=== PATIENT | male | born 1940 | race Caucasian/White ===

== ENCOUNTER 2017-05-23 23:10 | Inpatient (IN) | payer OTHER, BC ==
--- NOTE | 2017-05-23 23:32 | PDOC ---
History of Present Illness - General Chief Complaint: Respiratory Stated Complaint: DIFFICULTY BREATHING Time Seen by Provider: 05/23/17 23:14 History Source: Patient Exam Limitations: No Limitations - History of Present Illness Initial Comments: 05/24/17 00:11 This is a 76-year-old male brought in by his daughter for evaluation of difficulty breathing. Daughter said the patient is had difficulty breathing and shortness of breath 1 day. Patient is a poor historian daughter said she did not take the patient's temperature but he was complaining of some chills and she noted that he was having some episodes of sweating as well. Patient has a history significant for hypertension , high cholesterol, diabetes, coronary artery disease, status post WI 3, congestive heart failure. PAST MEDICAL HISTORY: As per history of present illness PAST SURGICAL HISTORY: no significant history FAMILY HISTORY: no pertinant history SOCIAL HISTORY: Pt lives with family and is retired MEDICATIONS: reviewed ALLERGIES: As per nursing notes Review of Systems General: No fevers or chills, no weakness, no weight loss HEENT: No change in vision. No sore throat,. No ear pain, + productive cough and congestion CardioVascular: dyspnea and shortness of breath, no chest pain Respiratory:No cough, or wheezing. Gastrointestinal: no nausea, vomitting, diarrhea or constipation, No rectal bleeding Genitourinary: No dysuria, hematuria, or frequency Musculoskeletal: No joint or muscle pain or swelling Neurologic: No headache, vertigo, dizziness or loss of consciousness Psychiatric: nor depression Skin: No rashes or easy bruising Endocrine: no increased thirst or abnormal weight change Allergic: no skin or latex allergy All other systems reviewed and normal Exam: General: Well-nourished well-developed individual, in mild respiratory distress , tachypnea HEENT: Throat: Normal, tonsils normal, no erythema or exudate Neck: Supple, no meningeal signs, no lymphadenopathy Eyes::Pupils equal reactive and round, extraocular motion intact Chest: Nontender to palpation Cardiac: S1-S2 normal, regular rate and rhythm, no murmurs rubs or gallops Respiratory: There is decreased breath sounds bilateral throat: Bilateral bases and rales proximally chcf up Abdomen: Soft, nondistended, normal bowel sounds, nontender to palpation diffusely Extremities: Warm, dry, no cyanosis, clubbing, or edema Skin: No rashes Neuro: Alert and oriented x3, nonfocal exam, grossly intact, normal gait Psych: Normal mood and affect EKG shows atrial fibrillation at a rate of 104, there is a left axis deviation, patient has evidence of old inferior as well as anteroseptal MIs there is no acute ST-T wave changes 01:00 approx. pt had 3 brief runs of self limited vtack 7 beats, 4beats and 4 beats. Pt reassesed and was without complaint. Past History - Past Medical History Allergies/Adverse Reactions: Allergies Allergy/AdvReac Type Severity Reaction Status Date / Time No Known Drug Allergies Allergy Verified 05/23/17 23:15 venom-honey bee Allergy Verified 05/23/17 23:15 [bee venom (honey bee)] Home Medications: Ambulatory Orders Allopurinol [Zyloprim -] 100 mg PO DAILY 09/19/16 Aspirin [ASA -] 325 mg PO DAILY 09/19/16 Glimepiride [Glimepiride -] 1 mg PO BID 09/19/16 Simvastatin 40 mg PO DAILY 09/19/16 Carvedilol [Coreg -] 12.5 mg PO BID #60 tablet 09/21/16 Lisinopril [Prinivil] 20 mg PO DAILY #30 tablet 09/21/16 Famotidine [Pepcid Ac] 5 mg PO 1/2 TAB DAILY tablet 10/09/16 Cephalexin [Keflex] 500 mg PO TID 05/24/17 Digoxin [Lanoxin -] 0.25 mg PO DAILY 05/24/17 Furosemide [Lasix] 40 mg PO DAILY 05/24/17 Warfarin Na [Coumadin -] 5 mg PO HS 05/24/17 Cardiac Disorders: Yes (MIx2 AFIB) COPD: Yes CHF: Yes Diabetes: Yes HTN: Yes Hypercholesterolemia: Yes - Surgical History Abdominal Surgery: Yes (HERNIA) Cardiac Surgery: (STENTS X2) - Immunization History Immunization Up to Date: No - Suicide/Smoking/Psychosocial Hx Smoking History: Former smoker Have you smoked in the past 12 months: No If you are a former smoker, when did you quit?: 1999 Hx Alcohol Use: No Drug/Substance Use Hx: No Substance Use Type: None Hx Substance Use Treatment: No ED Treatment Course - LABORATORY CBC & Chemistry Diagram: 05/23/17 23:20 05/23/17 23:20 Medical Decision Making - Critical Care Time Total Critical Care Time (minutes): 40 Critical Care Statement: The care of this patient involved high complexity decision making to prevent further life threatening deterioration of the patient 's condition and/or to evaluate & treat vital organ system(s) failure or risk of failure. *DC/Admit/Observation/Transfer Diagnosis at time of Disposition: Troponin level elevated Pneumonia Qualifiers: Pneumonia type: due to unspecified organism Laterality: left Lung location: lower lobe of lung Qualified Code(s): J18.1 - Lobar pneumonia, unspecified organism; J18.1 - Lobar pneumonia, unspecified organism; J18.1 - Lobar pneumonia , unspecified organism CHF (congestive heart failure) Qualifiers: Congestive heart failure type: unspecified congestive heart failure type Congestive heart failure chronicity: acute on chronic Qualified Code(s): I50.9 - Heart failure, unspecified; I50.9 - Heart failure, unspecified; I50.9 - Heart failure, unspecified; I50.9 - Heart failure, unspecified - Discharge Dispostion Condition at time of disposition: Fair Admit: Yes
[2017-05-23] MEDS ORDERED: FUROSEMIDE 100 MG/10 ML INJECTABLE VIAL IVPB ONE (23:42)
[2017-05-24] MEDS ORDERED: FUROSEMIDE 100 MG/10 ML INJECTABLE VIAL ONE (00:26)
[2017-05-24] MEDS ORDERED: CEFTRIAXONE 1 GM in DEXTROSE 5%-WATER - 50 ML IVPB ONE (00:26)
[2017-05-24] MEDS ORDERED: AZITHROMYCIN IVPB 500 MG in DEXTROSE 5%-WATER - 250 ML IVPB ONE (00:27)
[2017-05-24] MEDS ORDERED: AZITHROMYCIN 500 MG VIAL IVPB ONE (00:36)
[2017-05-24] MEDS ORDERED: cefTRIAXone SODIUM 1 GM VIAL ONE (00:36)
[2017-05-24 00:45] LABS: VENOUS BLOOD GAS HCO3 26.1 meq/L (19-25); VENOUS PH 7.42 (7.32-7.42)
[2017-05-24 00:51] LABS: BASOPHIL 0.5 % (0-2.0); MCH 28.2 pg (25.7-33.7); MCHC 33.9 g/dl (32.0-35.9); MEAN CELL VOLUME 83.1 fl (80-96); MEAN PLT VOLUME 9.4 fl (7.5-11.1); NEUTROPHILS 84.2 % (42.8-82.8); PLATELET COUNT 157 K/MM3 (134-434); RDW 15.4 % (11.9-15.9); WHITE BLOOD COUNT 13.2 K/mm3 (4.0-10.0)
[2017-05-24 01:00] LABS: INR 1.32 (0.82-1.09); PROTHROMBIN TIME (PATIENT) 14.9 SEC (9.98-11.88)
[2017-05-24 01:03] LABS: ACTIVATED PTT 33.8 SECONDS (26.9-34.4)
[2017-05-24 01:14] LABS: ANION GAP 13 (8-16); CALCIUM 8.5 mg/dL (8.5-10.1); CO2 25 mmol/L (21-32); GLUCOSE,RANDOM 211 mg/dL (74-106)
[2017-05-24 01:19] LABS: ALK PHOS 109 U/L (45-117); BILIRUBIN,TOTAL 1.3 mg/dL (0.2-1.0); CPK 877 IU/L (39-308); CREATININE 1.2 mg/dL (0.7-1.3); SGPT/ALT 49 U/L (12-78); TOT PROT 7.7 g/dl (6.4-8.2); TROPONIN I 0.07 ng/ml (0.00-0.05)
[2017-05-24 01:23] LABS: SGOT/AST 53 U/L (15-37)
[2017-05-24 02:32] LABS: URINE APPEARANCE CLEAR; URINE BILIRUBIN NEGATIVE (NEGATIVE); URINE BLOOD 2+ (NEGATIVE); URINE COLOR YELLOW; URINE GLUCOSE (UA) 2+ (NEGATIVE); URINE KETONE NEGATIVE (NEGATIVE); URINE NITRITE NEGATIVE (NEGATIVE); URINE UROBILINOGEN NEGATIVE mg/dL (0.2-1.0)
[2017-05-24 02:37] LABS: URINE PROTEIN 2+ (NEGATIVE)
[2017-05-24 02:45] LABS: URINE HYALINE CAST 1 /lpf; URINE MUCUS RARE; URINE WBC 2 /hpf (3-5)
[2017-05-24 03:05] LABS: URINE RBC 5 /hpf (0-3)
[2017-05-24 03:06] LABS: URINE BACTERIA FEW /hpf (NONE SEEN)
[2017-05-24 03:09] LABS: PHOSPHOROUS 2.5 mg/dL (2.5-4.9)
--- NOTE | 2017-05-24 03:15 | HP ---
CHIEF COMPLAINT: SOB, Productive Cough, Chills PCP: Dr. Story HISTORY OF PRESENT ILLNESS: This is a 76 y/o man with a significant past medical history of HTN, HLD, CAD- [place] x3, Multiple stents, Afib (on Coumadin), CVA (no residual), DM. Who presents to the ED with his daughter for SOB, cough, chills x 1 day. 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 The patient reports normally walking several feet without LOVING, he reports having orthopnea last night. According to the ED record, the patient is a poor historian, the daughter said she did not take the patient's temperature but he was complaining of some chills and she noted that he was having some episodes of sweating as well. 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, cardioembolic CVA with (neurologic recovery) Bronchitis Diverticulosis, GERD, Hiatal Hernia Renal Insufficiency, BPH Gout Diabetes Mellitus PAST SURGICAL HISTORY: TURP Cardiac Stents Cataract Removal Hernia Repair Social History: Smoking: Cigars- Former 1999 Alcohol: Social Drugs: None 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, 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 Family History: Father: NC, age 85 Mother: CVA, Allergies No Known Drug Allergies Allergy (Verified 05/23/17 23:15) venom-honey bee [bee venom (honey bee)] Allergy (Verified 05/23/17 23:15) HOME MEDICATIONS: Home Medications Medication Instructions Recorded Allopurinol [Zyloprim -] 100 mg PO DAILY 09/19/16 Aspirin [ASA -] 325 mg PO DAILY 09/19/16 Glimepiride [Glimepiride -] 1 mg PO BID 09/19/16 Simvastatin 40 mg PO DAILY 09/19/16 Carvedilol [Coreg -] 12.5 mg PO BID #60 tablet 09/21/16 Lisinopril [Prinivil] 20 mg PO DAILY #30 tablet 09/21/16 Famotidine [Pepcid Ac] 5 mg PO 1/2 TAB DAILY tablet 10/09/16 Cephalexin [Keflex] 500 mg PO TID 05/24/17 Digoxin [Lanoxin -] 0.25 mg PO DAILY 05/24/17 Furosemide [Lasix] 40 mg PO DAILY 05/24/17 Warfarin Na [Coumadin -] 5 mg PO HS 05/24/17 REVIEW OF SYSTEMS CONSTITUTIONAL: fever, chills, diaphoresis Absent: generalized weakness, malaise, loss of appetite, weight change HEENT: Absent: rhinorrhea, nasal congestion, throat pain, throat swelling, difficulty swallowing, mouth swelling, ear pain, eye pain, visual changes CARDIOVASCULAR: Absent: chest pain, syncope, palpitations, irregular heart rate, lightheadedness , peripheral edema RESPIRATORY: cough, shortness of breath, dyspnea with exertion, orthopnea, wheezing Absent: stridor, hemoptysis GASTROINTESTINAL: Absent: abdominal pain, abdominal distension, nausea, vomiting, diarrhea, constipation, melena, hematochezia GENITOURINARY: Absent: dysuria, frequency, urgency, hesitancy, hematuria, flank pain, genital pain MUSCULOSKELETAL: Absent: myalgia, arthralgia, joint swelling, back pain, neck pain SKIN: Absent: rash, itching, pallor HEMATOLOGIC/IMMUNOLOGIC: Absent: easy bleeding, easy bruising, lymphadenopathy, frequent infections ENDOCRINE: Absent: unexplained weight gain, unexplained weight loss, heat intolerance, cold intolerance NEUROLOGIC: Absent: headache, focal weakness or paresthesias, dizziness, unsteady gait, seizure, mental status changes, bladder or bowel incontinence PSYCHIATRIC: Absent: anxiety, depression, suicidal or homicidal ideation, hallucinations. PHYSICAL EXAMINATION Vital Signs - 24 hr 05/23/17 05/23/17 05/24/17 23:12 23:26 00:30 Temperature 98.1 F Pulse Rate 100 H 100 H Pulse Rate [ 103 H Left Radial] Respiratory 32 H 32 H Rate Blood Pressure 124/103 Blood Pressure 156/76 [Right Arm] O2 Sat by Pulse 98 98 Oximetry (%) 05/24/17 05/24/17 01:00 02:00 Temperature Pulse Rate Pulse Rate [ 114 H 103 H Left Radial] Respiratory 32 H 28 H Rate Blood Pressure Blood Pressure 161/80 161/79 [Right Arm] O2 Sat by Pulse 96 Oximetry (%) GENERAL: Awake, alert, and oriented x2, in mild resp distress. HEAD: Normal with no signs of trauma. Bandage to mid- anterior scalp EYES: Pupils equal, round and reactive to light, extraocular movements intact, sclera anicteric, conjunctiva clear. No lid lag. +eccyhmotic bruising to B/L orbits EARS, NOSE, THROAT: Ears normal, nares patent, oropharynx clear without exudates. Dry mucous membranes. NECK: Normal range of motion, supple without lymphadenopathy, JVD, or masses. LUNGS: Scattered coarse rhonchi, +wheezes throughout. No accessory muscle use. HEART: Irregular rate and rhythm, normal S1 and S2 without murmur, rub or gallop. ABDOMEN: Soft, obese, nontender, not distended, normoactive bowel sounds, no guarding, no rebound, no masses. No hepatomegaly or splenomegaly. MUSCULOSKELETAL: Normal range of motion at all joints. No bony deformities or tenderness. No CVA tenderness. UPPER EXTREMITIES: 2+ pulses, warm, well-perfused. No cyanosis. No clubbing. No peripheral edema. LOWER EXTREMITIES: 2+ pulses, warm, well-perfused. No calf tenderness. No peripheral edema. NEUROLOGICAL: Cranial nerves II-XII intact. Normal speech. Gait not observed. PSYCHIATRIC: Cooperative. Good eye contact. Appropriate mood and affect. SKIN: Warm, dry, normal turgor, no rashes or lesions noted, normal capillary refill. Laboratory Results - last 24 hr 05/23/17 05/23/17 05/23/17 23:20 23:20 23:20 WBC 13.2 H D RBC 5.68 H Hgb 16.0 Hct 47.2 MCV 83.1 MCH 28.2 D MCHC 33.9 RDW 15.4 D Plt Count 157 MPV 9.4 D Neutrophils % 84.2 H D Lymphocytes % 6.3 L D Monocytes % 8.0 Eosinophils % 1.0 Basophils % 0.5 PT with INR INR PTT (Actin FS) VBG pH POC VBG pCO2 POC VBG pO2 Mixed VBG HCO3 Sodium Cancelled Potassium Cancelled Chloride Cancelled Carbon Dioxide Cancelled Anion Gap Cancelled BUN Cancelled Creatinine Cancelled Creat Clearance w eGFR Cancelled Random Glucose Cancelled Lactic Acid Calcium Cancelled Magnesium Total Bilirubin Cancelled AST Cancelled ALT Cancelled Alkaline Phosphatase Cancelled Creatine Kinase Creatine Kinase Index CK-MB (CK-2) Troponin I B-Natriuretic Peptide Cancelled Total Protein Cancelled Albumin Cancelled Urine Color Urine Appearance Urine pH Urine Protein Urine Glucose (UA) Urine Ketones Urine Blood Urine Nitrite Urine Bilirubin Urine Urobilinogen Urine RBC Urine WBC Ur Epithelial Cells Urine Bacteria Hyaline Casts Urine Mucus 05/23/17 05/23/17 05/23/17 23:20 23:20 23:30 WBC RBC Hgb Hct MCV MCH MCHC RDW Plt Count MPV Neutrophils % Lymphocytes % Monocytes % Eosinophils % Basophils % PT with INR 14.90 H INR 1.32 H PTT (Actin FS) 33.8 VBG pH POC VBG pCO2 POC VBG pO2 Mixed VBG HCO3 Sodium 137 Potassium 4.1 Chloride 99 Carbon Dioxide 25 Anion Gap 13 BUN 22 H Creatinine 1.2 Creat Clearance w eGFR 58.71 Random Glucose 211 H Lactic Acid 1.7 Calcium 8.5 Magnesium Total Bilirubin 1.3 H D AST 53 H D ALT 49 D Alkaline Phosphatase 109 Creatine Kinase 877 H Creatine Kinase Index 0.3 CK-MB (CK-2) 3.330 Troponin I 0.07 H D B-Natriuretic Peptide 5644.19 H Total Protein 7.7 Albumin 4.0 Urine Color Urine Appearance Urine pH Urine Protein Urine Glucose (UA) Urine Ketones Urine Blood Urine Nitrite Urine Bilirubin Urine Urobilinogen Urine RBC Urine WBC Ur Epithelial Cells Urine Bacteria Hyaline Casts Urine Mucus 05/24/17 05/24/17 05/24/17 00:40 01:20 01:59 WBC RBC Hgb Hct MCV MCH MCHC RDW Plt Count MPV Neutrophils % Lymphocytes % Monocytes % Eosinophils % Basophils % PT with INR INR PTT (Actin FS) VBG pH 7.42 POC VBG pCO2 40.7 POC VBG pO2 49.4 H Mixed VBG HCO3 26.1 H Sodium Potassium Chloride Carbon Dioxide Anion Gap BUN Creatinine Creat Clearance w eGFR Random Glucose Lactic Acid Calcium Magnesium 2.0 Total Bilirubin AST ALT Alkaline Phosphatase Creatine Kinase Creatine Kinase Index CK-MB (CK-2) Troponin I B-Natriuretic Peptide Total Protein Albumin Urine Color Yellow Urine Appearance Clear Urine pH 5.0 Urine Protein 2+ H Urine Glucose (UA) 2+ H Urine Ketones Negative Urine Blood 2+ H Urine Nitrite Negative Urine Bilirubin Negative Urine Urobilinogen Negative Urine RBC 5 Urine WBC 2 Ur Epithelial Cells Rare Urine Bacteria Few Hyaline Casts 1 Urine Mucus Rare ASSESSMENT/PLAN: This is a 76 y/o man with a PMHx of: HTN, HLD, DM, CAD, MIs x3, Multiple Cardiac Stents, Afib (on Coumadin), Cardiomyopathy, CHF, BPH, Renal Insufficiency. Admitted to ICU for Pneumonia, CHF Exacerbation, Elevated Troponin for further evaluation of their emergent condition. Plan: 1. Pulmonary: Community Acquired Pneumonia - CURB65 Score 2 - + Leukocytosis with L shift, LA wnl - Chest Xray- image LLL infiltrate, ?RML Infiltrate, vascular congestion, report pending - Blood Cultures-pending - Urine Culture, Legionella- pending - Sputum Culture-pending - Ceftriaxone, Azithromycin given in ED, will continue - Appreciate ID Consult - O2 - Duonebs - Monitor vitals - Repeat CBCD, BMP 2. CHF Exacerbation - Chest Xray reviewed - Lasix given in ED, will continue - Appreciate Cardiology Consult - Monitor renal function - Echo 08/2016- showed LVEF 42%, LVSF mod seemly reduced, LA mod dilated, RA, mod dilated, trace AR - Strict INOs - Daily weights - Low Na Diet - Continue home meds 3. Elevated Troponin I - Likely secondary to ischemic demand - Cardiac monitoring - Serial Enzymes - Cardiac Consult appreciated 4. Afib - [id number] - Continue Coumadin 5. Subtherapeutic INR - Continue Coumadin - Daily INRs - Consider increasing dose 6. CAD - Continue home meds 7. HTN - Continue home meds 8. HLD - Continue home med - Lipid Panel 9 Diabetes Mellitus - BGMs - ISS - Hold home meds for tighter glycemic control - HgbA1C in am 10. GERD - Continue home med 11. FEN - Fluid restriction 1L - Replete lytes prn - Low Na Diabetic Diet 12. DVT Prophylaxis - OOB - SCDs - Coumadin Code Status: Full Code Dispo: Requires Inpatient Care Problem List - Problem (1) Pneumonia Code(s): J18.9 - PNEUMONIA, UNSPECIFIED ORGANISM Qualifiers: Pneumonia type: due to unspecified organism Laterality: left Lung location: lower lobe of lung Qualified Code(s): J18.1 - Lobar pneumonia, unspecified organism; J18.1 - Lobar pneumonia, unspecified organism; J18.1 - Lobar pneumonia, unspecified organism (2) Systolic CHF Code(s): I50.20 - UNSPECIFIED SYSTOLIC (CONGESTIVE) HEART FAILURE (3) Troponin level elevated Code(s): R74.8 - ABNORMAL LEVELS OF OTHER SERUM ENZYMES (4) A-fib Code(s): I48.91 - UNSPECIFIED ATRIAL FIBRILLATION (5) CAD (coronary artery disease) Code(s): I25.10 - ATHSCL HEART DISEASE OF [place] CORONARY ARTERY W/O ANG PCTRS (6) Diabetes mellitus Code(s): E11.9 - TYPE 2 DIABETES MELLITUS WITHOUT COMPLICATIONS (7) Hyperglycemia Code(s): R73.9 - HYPERGLYCEMIA, UNSPECIFIED (8) HTN (hypertension) Code(s): I10 - ESSENTIAL (PRIMARY) HYPERTENSION (9) DVT prophylaxis Code(s): [id number] - Visit type - Emergency Visit Emergency Visit: Yes ED Registration Date: 05/23/17 Care time: The patient presented to the Emergency Department on the above date and was hospitalized for further evaluation of their emergent condition. - New Patient This patient is new to me today: Yes Date on this admission: 05/24/17 - Critical Care Critical Care patient: Yes Total Critical Care Time (in minutes): 35 Critical Care Statement: The care of this patient involved high complexity decision making to prevent further life threatening deterioration of the patient 's condition and/or to evaluate & treat vital organ system(s) failure or risk of failure.
[2017-05-24 03:21] LABS: DIGOXIN LEVEL 1.1924 ng/ml (0.8-2.0)
--- NOTE | 2017-05-24 03:44 | CONSULT ---
Consult Consult Specialty:: Pulmonary Critical Care Reason for Consultation:: SOB - History of Present Illness Chief Complaint: Cough, SOB History of Present Illness: Pt is a 76 yo with h/o HTN, HL, DM, CAD, WI x 3, CHF who presented to [facility] yesterday with c/o cough and chills. Admission labs notable for WBC 13 and BNP 5633 as well as mildly elevated troponin. Physical exam on arrival notable for rales bilaterally. CXR with possible LLL infiltrate +/- ? fluid overload. Pt was started on Azithro/Ceftriaxone and transferred to ICU for further management. On arrival to ICU pt with increased work of breathing, crackles bilaterally. Pt reports cough with productive greenish sputum, has received flu shot this year. 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, cardioembolic CVA with neurologic recovery) Cardio/Vascular: Yes: AFIB (chronic), CAD (prior anterior WI in 1995 and underwent PTCA of LAD, PCI of PDA in 2003 for unstable angina, anteroseptal WI in 2008 and underwent thrombolytic therapy and PCI of LAD with Vision bare- metal stent), CHF (chronic systolic), HTN, WI Pulmonary: Yes: Bronchitis Gastrointestinal: Yes: Diverticulosis, GERD, Hiatal Hernia Renal/: Yes: Renal Inusuff, BPH Rheumatology: Yes: Gout Endocrine: Yes: Diabetes Mellitus - Past Surgical History Past Surgical History: Yes: Cataract Removal, Hernia Repair (Inguinal hernia), TURP - Alcohol/Substance Use Hx Alcohol Use: No History of Substance Use: reports: None - Smoking History Smoking history: Former smoker Have you smoked in the past 12 months: No If you are a former smoker, when did you quit?: 1999 - Social History ADL: Independent Occupation: Retired- [employer] History of Recent Travel: No Home Medications - Allergies Allergies/Adverse Reactions: Allergies Allergy/AdvReac Type Severity Reaction Status Date / Time No Known Drug Allergies Allergy Verified 05/23/17 23:15 venom-honey bee Allergy Verified 05/23/17 23:15 [bee venom (honey bee)] - Home Medications Home Medications: Ambulatory Orders Allopurinol [Zyloprim -] 100 mg PO DAILY 09/19/16 Aspirin [ASA -] 325 mg PO DAILY 09/19/16 Glimepiride [Glimepiride -] 1 mg PO BID 09/19/16 Simvastatin 40 mg PO DAILY 09/19/16 Carvedilol [Coreg -] 12.5 mg PO BID #60 tablet 09/21/16 Lisinopril [Prinivil] 20 mg PO DAILY #30 tablet 09/21/16 Famotidine [Pepcid Ac] 5 mg PO 1/2 TAB DAILY tablet 10/09/16 Cephalexin [Keflex] 500 mg PO TID 05/24/17 Digoxin [Lanoxin -] 0.25 mg PO DAILY 05/24/17 Furosemide [Lasix] 40 mg PO DAILY 05/24/17 Warfarin Na [Coumadin -] 5 mg PO HS 05/24/17 Family Disease History - Family Disease History Family Disease History: CA: Father (CVA), Other: Father, Mother (CVA) Physical Exam Vital Signs: Vital Signs Temperature 98.1 F 05/23/17 23:12 Pulse Rate 103 H 05/24/17 02:00 Respiratory Rate 28 H 05/24/17 02:00 Blood Pressure 161/79 05/24/17 02:00 O2 Sat by Pulse Oximetry (%) 96 05/24/17 02:00 Eyes: Yes: Other (forehead wound s/p basal cell carcinoma removal, dressing c/d/ i. L orbital swelling/edema) Cardiovascular: Yes: Pulse Irregular, S1, S2 Respiratory: Yes: Cough, On Nasal O2, Rales Gastrointestinal: Yes: Normal Bowel Sounds, Soft Edema: No Integumentary: Yes: WNL Neurological: Yes: WNL, Alert, Oriented Labs: CBCD WBC 13.2 K/mm3 (4.0-10.0) H D 05/23/17 23:20 RBC 5.68 M/mm3 (4.00-5.60) H 05/23/17 23:20 Hgb 16.0 GM/dL (11.7-16.9) 05/23/17 23:20 Hct 47.2 % (35.4-49) 05/23/17 23:20 MCV 83.1 fl (80-96) 05/23/17 23:20 MCHC 33.9 g/dl (32.0-35.9) 05/23/17 23:20 RDW 15.4 % (11.9-15.9) D 05/23/17 23:20 Plt Count 157 K/MM3 (134-434) 05/23/17 23:20 MPV 9.4 fl (7.5-11.1) D 05/23/17 23:20 CMP Sodium 137 mmol/L (136-145) 05/23/17 23:20 Potassium 4.1 mmol/L (3.5-5.1) 05/23/17 23:20 Chloride 99 mmol/L (98-107) 05/23/17 23:20 Carbon Dioxide 25 mmol/L (21-32) 05/23/17 23:20 Anion Gap 13 (8-16) 05/23/17 23:20 BUN 22 mg/dL (7-18) H 05/23/17 23:20 Creatinine 1.2 mg/dL (0.7-1.3) 05/23/17 23:20 Creat Clearance w eGFR 58.71 (>60) 05/23/17 23:20 Calcium 8.5 mg/dL (8.5-10.1) 05/23/17 23:20 Total Bilirubin 1.3 mg/dL (0.2-1.0) H D 05/23/17 23:20 AST 53 U/L (15-37) H D 05/23/17 23:20 ALT 49 U/L (12-78) D 05/23/17 23:20 Alkaline Phosphatase 109 U/L (45-117) 05/23/17 23:20 Total Protein 7.7 g/dl (6.4-8.2) 05/23/17 23:20 Albumin 4.0 g/dl (3.4-5.0) 05/23/17 23:20 Troponin, BNP 05/23/17 05/23/17 23:20 23:20 Troponin I 0.07 H D B-Natriuretic Peptide Cancelled 5644.19 H Problem List - Problems (1) CHF (congestive heart failure) Code(s): I50.9 - HEART FAILURE, UNSPECIFIED Qualifiers: Congestive heart failure type: unspecified congestive heart failure type Congestive heart failure chronicity: acute on chronic Qualified Code(s): I50.9 - Heart failure, unspecified; I50.9 - Heart failure, unspecified; I50.9 - Heart failure, unspecified; I50.9 - Heart failure, unspecified (2) Pneumonia Code(s): J18.9 - PNEUMONIA, UNSPECIFIED ORGANISM Qualifiers: Pneumonia type: due to unspecified organism Laterality: left Lung location: lower lobe of lung Qualified Code(s): J18.1 - Lobar pneumonia, unspecified organism; J18.1 - Lobar pneumonia, unspecified organism; J18.1 - Lobar pneumonia, unspecified organism (3) Troponin level elevated Code(s): R74.8 - ABNORMAL LEVELS OF OTHER SERUM ENZYMES (4) [place] (acute kidney injury) Code(s): N17.9 - ACUTE KIDNEY FAILURE, UNSPECIFIED (5) CAD (coronary artery disease) Code(s): I25.10 - ATHSCL HEART DISEASE OF [place] CORONARY ARTERY W/O ANG PCTRS (6) Diabetes mellitus Code(s): E11.9 - TYPE 2 DIABETES MELLITUS WITHOUT COMPLICATIONS Assessment/Plan Respiratory distress likely in the setting of CAP vs viral PNA vs CHF exacerbation (less likely) Elevated BNP Troponin leak -continue ceftriaxone/azithro (community dweller) -send sputum sample -send urine antigens (legionella and strep pneumo) -send respiratory viral swab -nebs -supplemental O2 as needed -cont home dose lasix -cont home antiHTN/ASA/statin -consider TTE -trend BNP and troponin -FS, insulin prn as needed MICHELLE Carson Critical Care time: 35 min
[2017-05-24 04:02] VITALS: BMI 29.8
[2017-05-24] MEDS: ALBUTEROL SO4 2.5/IPRATROPIUM 0.5 INH SOL 3 ML VIAL.NEB. NEB SCH ×3 (05:53→18:00)
[2017-05-24] MEDS: INSULIN SLIDING SCALE (NOVOLOG) 1 VIAL SQ SCH ×4 (06:03→21:56)
[2017-05-24] MEDS ORDERED: FAMOTIDINE 5 MG PO SCH (06:15)
[2017-05-24 06:18] LABS: INR 1.35 (0.82-1.09); PROTHROMBIN TIME (PATIENT) 15.3 SEC (9.98-11.88)
[2017-05-24 06:23] LABS: BASOPHIL 0.5 % (0-2.0); MCH 28.3 pg (25.7-33.7); MCHC 34.2 g/dl (32.0-35.9); MEAN CELL VOLUME 82.8 fl (80-96); MEAN PLT VOLUME 8.6 fl (7.5-11.1); NEUTROPHILS 79.4 % (42.8-82.8); PLATELET COUNT 137 K/MM3 (134-434); RDW 15.3 % (11.9-15.9); WHITE BLOOD COUNT 10.6 K/mm3 (4.0-10.0)
[2017-05-24 06:31] LABS: ANION GAP 10 (8-16); CALCIUM 8.1 mg/dL (8.5-10.1); CO2 28 mmol/L (21-32); CREATININE 1.2 mg/dL (0.7-1.3); GLUCOSE,RANDOM 215 mg/dL (74-106)
[2017-05-24 06:33] LABS: CPK 764 IU/L (39-308); TROPONIN I 0.08 ng/ml (0.00-0.05)
[2017-05-24 06:39] LABS: CHOLESTEROL 103 mg/dL (50-200)
[2017-05-24] MEDS ORDERED: ACETAMINOPHEN 325 MG TABLET (FP) PO PRN (08:15)
--- NOTE | 2017-05-24 08:36 | EKG ---
Test Reason : Blood Pressure : / mmHG Vent. 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
[2017-05-24] MEDS ORDERED: PT OWN MED DRAWER 7, Y5N ONE (09:18)
[2017-05-24] MEDS: MUPIROCIN 2% TOPICAL OINTMENT FOR DECOLONIZATION NS SCH ×2 (09:19→21:51)
[2017-05-24] MEDS: ASPIRIN 325 MG TABLET PO SCH (09:19)
[2017-05-24] MEDS: DIGOXIN 0.25 MG TABLET (FP) PO SCH (09:20)
[2017-05-24] MEDS: CARVEDILOL 12.5 MG TABLET (FP) PO SCH ×2 (09:20→21:51)
[2017-05-24] MEDS: FUROSEMIDE 40 MG/4 ML INJECTABLE VIAL IVPUSH SCH (09:21)
[2017-05-24] MEDS: LISINOPRIL 20 MG TABLET (FP) PO SCH (09:21)
--- NOTE | 2017-05-24 10:58 | PN ---
Physical Exam: SUBJECTIVE: Patient seen and examined Patient is feeling better, positive for productive cough but no hemoptysis. OBJECTIVE: Vital Signs Temperature 99.6 F 05/24/17 06:00 Pulse Rate 104 H 05/24/17 09:20 Respiratory Rate 28 H 05/24/17 08:00 Blood Pressure 149/73 05/24/17 08:00 O2 Sat by Pulse Oximetry (%) 98 05/24/17 09:00 GENERAL: The patient is awake, alert, and fully oriented, in no acute distress. Tanned skin. HEAD: Normal with no signs of trauma. Forhead is covered with a gauze s/p basal cell ca EYES: PERRL, extraocular movements intact, sclera anicteric, conjunctiva clear. ENT: Ears normal, oropharynx clear without exudates, moist mucous membranes. NECK: Trachea midline, full range of motion, supple. LUNGS: Breath sounds equal, clear to auscultation bilaterally, no wheezes, no crackles, no accessory muscle use. HEART: Regular rate and rhythm, S1, S2 without murmur, rub or gallop. ABDOMEN: Soft, nontender, nondistended, normoactive bowel sounds, no guarding, no rebound, no hepatosplenomegaly, no masses. EXTREMITIES: 2+ pulses, warm, well-perfused, no edema. NEUROLOGICAL: Cranial nerves II through XII grossly intact. Normal speech, gait not observed. PSYCH: Normal mood, normal affect. SKIN: Warm, dry, normal turgor, no rashes or lesions noted CBCD WBC 10.6 K/mm3 (4.0-10.0) H 05/24/17 05:05 RBC 5.49 M/mm3 (4.00-5.60) 05/24/17 05:05 Hgb 15.6 GM/dL (11.7-16.9) 05/24/17 05:05 Hct 45.5 % (35.4-49) 05/24/17 05:05 MCV 82.8 fl (80-96) 05/24/17 05:05 MCHC 34.2 g/dl (32.0-35.9) 05/24/17 05:05 RDW 15.3 % (11.9-15.9) 05/24/17 05:05 Plt Count 137 K/MM3 (134-434) 05/24/17 05:05 MPV 8.6 fl (7.5-11.1) 05/24/17 05:05 CMP Sodium 137 mmol/L (136-145) 05/24/17 05:05 Potassium 3.2 mmol/L (3.5-5.1) L D 05/24/17 05:05 Chloride 99 mmol/L (98-107) 05/24/17 05:05 Carbon Dioxide 28 mmol/L (21-32) 05/24/17 05:05 Anion Gap 10 (8-16) 05/24/17 05:05 BUN 22 mg/dL (7-18) H 05/24/17 05:05 Creatinine 1.2 mg/dL (0.7-1.3) 05/24/17 05:05 Creat Clearance w eGFR 58.71 (>60) 05/23/17 23:20 Random Glucose 215 mg/dL (74-106) H 05/24/17 05:05 Calcium 8.1 mg/dL (8.5-10.1) L 05/24/17 05:05 Total Bilirubin 1.3 mg/dL (0.2-1.0) H D 05/23/17 23:20 AST 53 U/L (15-37) H D 05/23/17 23:20 ALT 49 U/L (12-78) D 05/23/17 23:20 Alkaline Phosphatase 109 U/L (45-117) 05/23/17 23:20 Total Protein 7.7 g/dl (6.4-8.2) 05/23/17 23:20 Albumin 4.0 g/dl (3.4-5.0) 05/23/17 23:20 CARDIAC ENZYMES Creatine Kinase 764 IU/L (39-308) H 05/24/17 05:05 Troponin I 0.08 ng/ml (0.00-0.05) H 05/24/17 05:05 Active Medications Generic Name Dose Route Start Last Admin Trade Name Freq PRN Reason Stop Dose Admin Acetaminophen 650 mg 05/24/17 08:15 Tylenol - PO Q6H PRN FEVER OR PAIN Albuterol/Ipratropium 1 amp 05/24/17 06:00 05/24/17 05:53 Duoneb - NEB 1 amp QIDR [facility] Administration Aspirin 325 mg 05/24/17 10:00 05/24/17 09:19 Asa - PO 325 mg DAILY [facility] Administration Atorvastatin Calcium 20 mg 05/24/17 22:00 Lipitor - PO HS [facility] Carvedilol 12.5 mg 05/24/17 10:00 05/24/17 09:20 Coreg - PO 12.5 mg BID [facility] Administration Chlorhexidine Gluconate 1 applic 05/24/17 22:00 Hibiclens For Decolonization - TP HS [facility] Digoxin 0.25 mg 05/24/17 10:00 05/24/17 09:20 Lanoxin - PO 0.25 mg DAILY [facility] Administration Furosemide 40 mg 05/24/17 10:00 05/24/17 09:21 Lasix Injection - IVPUSH 40 mg DAILY [facility] Administration Azithromycin 250 mls @ 250 mls/hr 05/25/17 01:00 Zithromax 500mg Ivpb (Pre-Docked) IVPB DAILY [facility] CEFTRIAXONE 1 G/50 ML PREMIX 50 mls @ 200 mls/hr 05/25/17 01:00 Ceftriaxone 1 Gm-D5w Bag IVPB DAILY [facility] Insulin Aspart 1 vial 05/24/17 07:00 05/24/17 06:03 Novolog Vial Sliding Scale - SQ 4 units ACHS [facility] Administration Protocol Lisinopril 20 mg 05/24/17 10:00 05/24/17 09:21 Prinivil PO 20 mg DAILY [facility] Administration Mupirocin 1 applic 05/24/17 10:00 05/24/17 09:19 Bactroban Ointment (For Decolonization) - NS 05/29/17 09:59 1 applic BID [facility] Administration Non-Formulary Medication 5 mg 05/24/17 06:15 Famotidine [Pepcid Ac] PO 1/2 TAB DAILY [facility] Warfarin Sodium 5 mg 05/24/17 18:00 Coumadin - PO DAILY@1800 [facility] Home Medications Medication Instructions Recorded Allopurinol [Zyloprim -] 100 mg PO DAILY 09/19/16 Aspirin [ASA -] 325 mg PO DAILY 09/19/16 Glimepiride [Glimepiride -] 1 mg PO BID 09/19/16 Simvastatin 40 mg PO DAILY 09/19/16 Carvedilol [Coreg -] 12.5 mg PO BID #60 tablet 09/21/16 Lisinopril [Prinivil] 20 mg PO DAILY #30 tablet 09/21/16 Famotidine [Pepcid Ac] 5 mg PO 1/2 TAB DAILY tablet 10/09/16 Cephalexin [Keflex] 500 mg PO TID 05/24/17 Digoxin [Lanoxin -] 0.25 mg PO DAILY 05/24/17 Furosemide [Lasix] 40 mg PO DAILY 05/24/17 Warfarin Na [Coumadin -] 5 mg PO HS 05/24/17 Microbiology 05/23/17 23:20 Blood - Peripheral Venous Blood Culture - Preliminary NO GROWTH OBTAINED AFTER 48 HOURS, INCUBATION TO CONTINUE FOR 3 DAYS. 05/23/17 23:40 Blood - Peripheral Venous Blood Culture - Preliminary NO GROWTH OBTAINED AFTER 48 HOURS, INCUBATION TO CONTINUE FOR 3 DAYS. 05/24/17 03:40 Sputum - Expectorated Gram Stain - Final 05/24/17 03:40 Sputum - Expectorated Sputum Culture - Preliminary NORMAL RESPIRATORY MILADYS 05/24/17 11:30 Urine For Antigen Detection Legionella Antigen - Final 05/24/17 11:30 Urine For Antigen Detection Streptococcus pneumoniae Antigen (M - Final Chest Xray- image LLL infiltrate, ?RML Infiltrate, vascular congestion, report pending Echo 08/2016- showed LVEF 42%, LVSF mod seemly reduced, LA mod dilated, RA, mod dilated, trace AR ASSESSMENT/PLAN: This is a 76 y/o man with a PMHx of: HTN, HLD, DM, CAD, MIs x3, Multiple Cardiac Stents, Afib (on Coumadin), Cardiomyopathy, CHF, BPH, Renal Insufficiency. Admitted to ICU for Pneumonia, CHF Exacerbation, Elevated Troponin for further evaluation of their emergent condition. # Acute community Acquired Pneumonia; On Iv Ceftriaone and zithromax continue, ID on the case. # Acute diastolic CHF Exacerbation ; Is and Os, daily weight, low sodium diet, On Lasix, digoxin, Lisinopril, coreg continue. #. Elevated Troponin I; most likely for ischemic demand # Afib with [id number], on Coumadin continue , daily INRs # Recent Bx for Basal cell ca , will apply bactroban 2x per day # Hx of CAD Continue home meds, llipitor coreg, # Hx of HTN Continue home meds # Hx of HLD Continue home med, Lipid Panel #Diabetes Mellitus; BGMs with SSI coverage # GERD Continue home med # DVT Prophylaxis OOB, SCDs, Coumadin Code Status: Full Code Visit type - Emergency Visit Emergency Visit: Yes ED Registration Date: 05/24/17 Care time: The patient presented to the Emergency Department on the above date and was hospitalized for further evaluation of their emergent condition. - New Patient This patient is new to me today: Yes Date on this admission: 05/24/17 - Critical Care Critical Care patient: Yes Total Critical Care Time (in minutes): 34 Critical Care Statement: The care of this patient involved high complexity decision making to prevent further life threatening deterioration of the patient 's condition and/or to evaluate & treat vital organ system(s) failure or risk of failure.
[2017-05-24 11:38] LABS: URINE LEUK ESTERASE Negative (NEGATIVE)
--- NOTE | 2017-05-24 12:22 | PN ---
Progress Note (short form) - Note Progress Note: ID consult dictated clinically c/w pneumonia felt feverish with chills, cough with yellow sputum and SOB last admission 2016 cxray cannot r/o bibasilarinfiltrates agree with treatment for CAP rocephin/zithromax chf exacerbation Problem List - Problems (1) Pneumonia Code(s): J18.9 - PNEUMONIA, UNSPECIFIED ORGANISM Qualifiers: Pneumonia type: due to unspecified organism Laterality: left Lung location: lower lobe of lung Qualified Code(s): J18.1 - Lobar pneumonia, unspecified organism; J18.1 - Lobar pneumonia, unspecified organism; J18.1 - Lobar pneumonia, unspecified organism (2) CHF (congestive heart failure) Code(s): I50.9 - HEART FAILURE, UNSPECIFIED Qualifiers: Congestive heart failure type: unspecified congestive heart failure type Congestive heart failure chronicity: acute on chronic Qualified Code(s): I50.9 - Heart failure, unspecified; I50.9 - Heart failure, unspecified; I50.9 - Heart failure, unspecified; I50.9 - Heart failure, unspecified
--- NOTE | 2017-05-24 13:16 | CONS ---
DATE OF CONSULTATION: DATE OF DICTATION: 05/24/2017 REQUESTING PHYSICIAN: Hospitalist service. HISTORY: This is a 76-year-old man with a past medical history of hypertension, coronary artery disease, atrial fibrillation, who on had a biopsy of a lesion on his forehead. He reports after having had the biopsy he developed cough and shortness of breath. He also felt feverish with chills at home. Cough was productive of green sputum. There was no hemoptysis. His daughter brought him to the emergency room with these complaints. There were no complaints of chest pain, nausea, vomiting, diarrhea, or dysuria. A month back he had a biopsy of his nose, after which he developed some swelling of both his eyes, which he reports has improved. He was given a medication after the biopsy. He is unclear as to what he was given. In the ER he was noted to have a white count of 13.2. PAST MEDICAL HISTORY: Notable for prior TN. He has a history of stents, atrial fibrillation, hypertension, hyperlipidemia, CVA, bronchitis, diverticulosis, GERD, hiatal hernia, renal insufficiency, BPH, gout, and diabetes. PAST SURGICAL HISTORY: Notable for TURP, cataract removal, and hernia repair. FAMILY HISTORY: Father had TN and mother history of CVA. Both his parents are . SOCIAL HISTORY: He lives with his daughter. 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 No history of any substance use. ALLERGIES: He has no known drug allergies. He is allergic to BEE VENOM. MEDICATIONS: His medications at home include allopurinol, aspirin, glimepiride, simvastatin, Coreg, Prinivil, Pepcid, furosemide, Coumadin, and Lanoxin. PHYSICAL EXAMINATION: General: He is awake and alert. Vital Signs: Temperature is 98.7. T-max is 99.6. Pulse of 112, blood pressure 124/70. Respiratory rate is 23. He is saturating 98%. HEENT: He is normocephalic. His eyes are anicteric. He has no thrush. He has a bandage on his forehead. Underneath he has no drainage. Sutures are intact. He has some mild discoloration around both eyes, left greater than right, which he reports has improved. Neck: Supple. Lungs: Lungs have bilateral rhonchi. Heart: Regular rate and rhythm. Abdomen: Soft, nontender. Extremities: Without edema. LABORATORY: White count on admission was 13.2, this morning is 10.6, hemoglobin 15.6. BUN and creatinine are 22 and 1.2. Hemoglobin A1c is 7. CPK is 764. Urinalysis has 2 white cells and cultures are pending. Chest x-ray shows some cardiomegaly. I cannot rule out bibasilar infiltrates. SUMMARY: This is a 76-year-old man with clinical exam and history consistent with pneumonia as well as possible congestive heart failure exacerbation. Last admission was in August of 2016. Would agree with continuing Rocephin and Zithromax, follow up Legionella urinary antigen and cultures. He is to be evaluated by Cardiology as well. CHAYA MELO M.D. [id number]
[2017-05-24 14:12] LABS: TROPONIN I 0.06 ng/ml (0.00-0.05)
[2017-05-24] MEDS: WARFARIN NA 5 MG TABLET (UD) PO SCH (18:01)
[2017-05-24] MEDS: CHLORHEXIDINE GLUCONATE 4% CLEANSER FOR DECOLONIZATION TP SCH (21:51)
[2017-05-24] MEDS: ATORVASTATIN CA 20 MG TABLET (FP) PO SCH (21:51)
[2017-05-25] MEDS ORDERED: PT OWN MED DRAWER 7, Y5N ONE ×2 (00:21→09:07)
[2017-05-25] MEDS: CEFTRIAXONE 1 G/50 ML PREMIX 50 ML IVPB SCH ×2 (00:58→09:03)
[2017-05-25] MEDS: AZITHROMYCIN IVPB 250 ML IVPB SCH ×2 (00:59→11:40)
[2017-05-25] MEDS: INSULIN SLIDING SCALE (NOVOLOG) 1 VIAL SQ SCH ×4 (06:22→21:32)
[2017-05-25] MEDS: ALBUTEROL SO4 2.5/IPRATROPIUM 0.5 INH SOL 3 ML VIAL.NEB. NEB SCH ×4 (06:25→18:00)
[2017-05-25 06:39] LABS: INR 1.3 (0.82-1.09); PROTHROMBIN TIME (PATIENT) 14.7 SEC (9.98-11.88)
[2017-05-25] MEDS: DIGOXIN 0.25 MG TABLET (FP) PO SCH (09:01)
[2017-05-25] MEDS: LISINOPRIL 20 MG TABLET (FP) PO SCH (09:02)
[2017-05-25] MEDS: FUROSEMIDE 40 MG/4 ML INJECTABLE VIAL IVPUSH SCH (09:02)
[2017-05-25] MEDS: ASPIRIN 325 MG TABLET PO SCH (09:02)
[2017-05-25] MEDS: CARVEDILOL 12.5 MG TABLET (FP) PO SCH ×2 (09:02→21:28)
[2017-05-25] MEDS: MUPIROCIN 2% TOPICAL OINTMENT FOR DECOLONIZATION NS SCH ×2 (09:05→21:28)
--- NOTE | 2017-05-25 09:15 | PN ---
Progress Note (short form) - Note Progress Note: Patient seen and examined in the ICU. Awake and alert. Still with some cough but better. No CP. No acute events overnight. Intake & Output 05/22/17 05/23/17 05/24/17 05/25/17 23:59 23:59 23:59 23:59 Intake Total 2180 470 Output Total 2150 500 Balance 30 -30 Weight 200 lb 208 lb 1.6 oz 207 lb 1.6 oz Last Vital Signs Temp Pulse Resp BP Pulse Ox 97.4 F L 105 H 25 H 115/60 95 05/25/17 06:00 05/25/17 09:01 05/25/17 07:58 05/25/17 07:58 05/25/17 08:01 Active Medications Acetaminophen (Tylenol -) 650 mg PO Q6H PRN PRN Reason: FEVER OR PAIN Albuterol/Ipratropium (Duoneb -) 1 amp NEB QIDR [facility] Last Admin: 05/25/17 06:25 Dose: 1 amp Aspirin (Asa -) 325 mg PO DAILY [facility] Last Admin: 05/25/17 09:02 Dose: 325 mg Atorvastatin Calcium (Lipitor -) 20 mg PO HS [facility] Last Admin: 05/24/17 21:51 Dose: 20 mg Carvedilol (Coreg -) 12.5 mg PO BID [facility] Last Admin: 05/25/17 09:02 Dose: 12.5 mg Chlorhexidine Gluconate (Hibiclens For Decolonization -) 1 applic TP HS [facility] Last Admin: 05/24/17 21:51 Dose: 1 applic Digoxin (Lanoxin -) 0.25 mg PO DAILY [facility] Last Admin: 05/25/17 09:01 Dose: 0.25 mg Furosemide (Lasix Injection -) 40 mg IVPUSH DAILY [facility] Last Admin: 05/25/17 09:02 Dose: 40 mg Azithromycin (Zithromax 500mg Ivpb (Pre-Docked)) 250 mls @ 250 mls/hr IVPB DAILY [facility] Last Admin: 05/25/17 00:59 Dose: 250 mls/hr CEFTRIAXONE 1 G/50 ML PREMIX (Ceftriaxone 1 Gm-D5w Bag) 50 mls @ 200 mls/hr IVPB DAILY [facility] Last Admin: 05/25/17 09:03 Dose: 200 mls/hr Insulin Aspart (Novolog Vial Sliding Scale -) 1 vial SQ ACHS [facility] PRN Reason: Protocol Last Admin: 05/25/17 06:22 Dose: 2 units Lisinopril (Prinivil) 20 mg PO DAILY [facility] Last Admin: 05/25/17 09:02 Dose: 20 mg Mupirocin (Bactroban Ointment (For Decolonization) -) 1 applic NS BID [facility] Stop: 05/29/17 09:59 Last Admin: 05/25/17 09:05 Dose: 1 applic Non-Formulary Medication (Famotidine [Pepcid Ac]) 5 mg PO 1/2 TAB DAILY [facility] Warfarin Sodium (Coumadin -) 5 mg PO DAILY@1800 [facility] Eyes: Yes: Other (forehead wound s/p basal cell carcinoma removal, dressing c/d/ i. L orbital swelling/edema) Cardiovascular: Yes: Pulse Irregular, S1, S2 Respiratory: Yes: Cough, On Nasal O2, coarse basilar rhonchi Gastrointestinal: Yes: Normal Bowel Sounds, Soft Edema: No Integumentary: Yes: WNL Neurological: Yes: WNL, Alert, Oriented Labs: Laboratory Results - last 24 hr 05/24/17 05/24/17 05/24/17 01:20 05:31 11:55 PT with INR INR POC Glucometer 228.04688 [phone] Creatine Kinase Creatine Kinase Index CK-MB (CK-2) Troponin I Urine Color Yellow Urine Appearance Clear Urine pH 5.0 Ur Specific [place] 1.020 Urine Protein 2+ H Urine Glucose (UA) 2+ H Urine Ketones Negative Urine Blood 2+ H Urine Nitrite Negative Urine Bilirubin Negative Urine Urobilinogen Negative Ur Leukocyte Esterase Negative Urine RBC 5 Urine WBC 2 Ur Epithelial Cells Rare Urine Bacteria Few Hyaline Casts 1 Urine Mucus Rare 05/24/17 05/25/17 05/25/17 13:22 05:05 05:06 PT with INR 14.70 H INR 1.30 H POC Glucometer 194.66864 Creatine Kinase 535 H Creatine Kinase Index 0.4 CK-MB (CK-2) 2.433 Troponin I 0.06 H Urine Color Urine Appearance Urine pH Ur Specific [place] Urine Protein Urine Glucose (UA) Urine Ketones Urine Blood Urine Nitrite Urine Bilirubin Urine Urobilinogen Ur Leukocyte Esterase Urine RBC Urine WBC Ur Epithelial Cells Urine Bacteria Hyaline Casts Urine Mucus Problem List - Problems (1) CHF (congestive heart failure) Code(s): I50.9 - HEART FAILURE, UNSPECIFIED Qualifiers: Congestive heart failure type: unspecified congestive heart failure type Congestive heart failure chronicity: acute on chronic Qualified Code(s): I50.9 - Heart failure, unspecified; I50.9 - Heart failure, unspecified; I50.9 - Heart failure, unspecified; I50.9 - Heart failure, unspecified (2) Pneumonia Code(s): J18.9 - PNEUMONIA, UNSPECIFIED ORGANISM Qualifiers: Pneumonia type: due to unspecified organism Laterality: left Lung location: lower lobe of lung Qualified Code(s): J18.1 - Lobar pneumonia, unspecified organism; J18.1 - Lobar pneumonia, unspecified organism; J18.1 - Lobar pneumonia, unspecified organism (3) Troponin level elevated Code(s): R74.8 - ABNORMAL LEVELS OF OTHER SERUM ENZYMES (4) [place] (acute kidney injury) Code(s): N17.9 - ACUTE KIDNEY FAILURE, UNSPECIFIED (5) CAD (coronary artery disease) Code(s): I25.10 - ATHSCL HEART DISEASE OF [place] CORONARY ARTERY W/O ANG PCTRS (6) Diabetes mellitus Code(s): E11.9 - TYPE 2 DIABETES MELLITUS WITHOUT COMPLICATIONS Assessment/Plan Respiratory distress likely in the setting of CAP Elevated BNP Troponin leak ABX per ID O2 as needed Follow sputum BD TX ASA Statin Glycemic control Cardiac Telemetry monitoring Dr Gonzalez Critical care time spent in reviewing chart, evaluating patient and formulating plan - 36 minutes.
--- NOTE | 2017-05-25 11:53 | PN ---
Progress Note (short form) - Note Progress Note: oob in chair feels better Vital Signs Period Temp Pulse Resp BP Sys/Liao Pulse Ox Last 24 Hr 97.4 F-99.2 F 76-107 100-140/53-96 95-100 cor-rrr lungs bilateral rhonchi abd soft,nt ext no edema CBC, BMP 05/24/17 05:05 05/24/17 05:05 Microbiology 05/23/17 23:20 Blood - Peripheral Venous Blood Culture - Preliminary NO GROWTH OBTAINED AFTER 24 HOURS, INCUBATION TO CONTINUE FOR 4 DAYS. 05/23/17 23:40 Blood - Peripheral Venous Blood Culture - Preliminary NO GROWTH OBTAINED AFTER 24 HOURS, INCUBATION TO CONTINUE FOR 4 DAYS. 05/24/17 03:40 Sputum - Expectorated Gram Stain - Final 05/24/17 11:30 Urine For Antigen Detection Legionella Antigen - Final 05/24/17 11:30 Urine For Antigen Detection Streptococcus pneumoniae Antigen (M - Final a/p clinically c/w pneumonia agree with treatment for CAP rocephin/zithromax chf exacerbation Problem List - Problems (1) Pneumonia Code(s): J18.9 - PNEUMONIA, UNSPECIFIED ORGANISM Qualifiers: Pneumonia type: due to unspecified organism Laterality: left Lung location: lower lobe of lung Qualified Code(s): J18.1 - Lobar pneumonia, unspecified organism; J18.1 - Lobar pneumonia, unspecified organism; J18.1 - Lobar pneumonia, unspecified organism (2) CHF (congestive heart failure) Code(s): I50.9 - HEART FAILURE, UNSPECIFIED Qualifiers: Congestive heart failure type: unspecified congestive heart failure type Congestive heart failure chronicity: acute on chronic Qualified Code(s): I50.9 - Heart failure, unspecified; I50.9 - Heart failure, unspecified; I50.9 - Heart failure, unspecified; I50.9 - Heart failure, unspecified
[2017-05-25] MEDS: WARFARIN NA 5 MG TABLET (UD) PO SCH (17:13)
--- NOTE | 2017-05-25 17:53 | PN ---
Progress Note (short form) - Note Progress Note: Patient is feeling better today with no acute distress. In ICU Vital Signs Temperature 98.4 F 05/25/17 14:00 Pulse Rate 87 05/25/17 14:00 Respiratory Rate 20 05/25/17 14:00 Blood Pressure 122/80 05/25/17 14:00 O2 Sat by Pulse Oximetry (%) 95 05/25/17 08:01 GENERAL: The patient is awake, alert, and fully oriented, in no acute distress. Tanned skin. HEAD: Normal with no signs of trauma. [place] is covered with a gauze s/p basal cell ca EYES: PERRL, extraocular movements intact, sclera anicteric, conjunctiva clear. ENT: Ears normal, oropharynx clear without exudates, moist mucous membranes. NECK: Trachea midline, full range of motion, supple. LUNGS: decreased BS on the mid left posterior lung ,otherwise clear, no wheezes , no crackles, no accessory muscle use. HEART: Regular rate and rhythm, S1, S2 without murmur, rub or gallop. ABDOMEN: Soft, nontender, nondistended, normoactive bowel sounds, no guarding, no rebound, no hepatosplenomegaly, no masses. EXTREMITIES: 2+ pulses, warm, well-perfused, no edema. NEUROLOGICAL: Cranial nerves II through XII grossly intact. Normal speech, gait not observed. PSYCH: Normal mood, normal affect. SKIN: Warm, dry, normal turgor, no rashes or lesions noted CBCD WBC 10.6 K/mm3 (4.0-10.0) H 05/24/17 05:05 RBC 5.49 M/mm3 (4.00-5.60) 05/24/17 05:05 Hgb 15.6 GM/dL (11.7-16.9) 05/24/17 05:05 Hct 45.5 % (35.4-49) 05/24/17 05:05 MCV 82.8 fl (80-96) 05/24/17 05:05 MCHC 34.2 g/dl (32.0-35.9) 05/24/17 05:05 RDW 15.3 % (11.9-15.9) 05/24/17 05:05 Plt Count 137 K/MM3 (134-434) 05/24/17 05:05 MPV 8.6 fl (7.5-11.1) 05/24/17 05:05 CMP Sodium 137 mmol/L (136-145) 05/24/17 05:05 Potassium 3.2 mmol/L (3.5-5.1) L D 05/24/17 05:05 Chloride 99 mmol/L (98-107) 05/24/17 05:05 Carbon Dioxide 28 mmol/L (21-32) 05/24/17 05:05 Anion Gap 10 (8-16) 05/24/17 05:05 BUN 22 mg/dL (7-18) H 05/24/17 05:05 Creatinine 1.2 mg/dL (0.7-1.3) 05/24/17 05:05 Creat Clearance w eGFR 58.71 (>60) 05/23/17 23:20 Random Glucose 215 mg/dL (74-106) H 05/24/17 05:05 Calcium 8.1 mg/dL (8.5-10.1) L 05/24/17 05:05 Total Bilirubin 1.3 mg/dL (0.2-1.0) H D 05/23/17 23:20 AST 53 U/L (15-37) H D 05/23/17 23:20 ALT 49 U/L (12-78) D 05/23/17 23:20 Alkaline Phosphatase 109 U/L (45-117) 05/23/17 23:20 Total Protein 7.7 g/dl (6.4-8.2) 05/23/17 23:20 Albumin 4.0 g/dl (3.4-5.0) 05/23/17 23:20 CARDIAC ENZYMES Creatine Kinase 535 IU/L (39-308) H 05/24/17 13:22 Troponin I 0.06 ng/ml (0.00-0.05) H 05/24/17 13:22 Current Medications Generic Name Dose Route Start Last Admin Trade Name Freq PRN Reason Stop Dose Admin Acetaminophen 650 mg 05/24/17 08:15 Tylenol - PO Q6H PRN FEVER OR PAIN Albuterol/Ipratropium 1 amp 05/24/17 06:00 05/25/17 12:30 Duoneb - NEB 1 amp QIDR YVES Administration Aspirin 325 mg 05/24/17 10:00 05/25/17 09:02 Asa - PO 325 mg DAILY YVES Administration Atorvastatin Calcium 20 mg 05/24/17 22:00 05/24/17 21:51 Lipitor - PO 20 mg HS YVES Administration Carvedilol 12.5 mg 05/24/17 10:00 05/25/17 09:02 Coreg - PO 12.5 mg BID YVES Administration Chlorhexidine Gluconate 1 applic 05/24/17 22:00 05/24/17 21:51 Hibiclens For Decolonization - TP 1 applic HS YVES Administration Digoxin 0.25 mg 05/24/17 10:00 05/25/17 09:01 Lanoxin - PO 0.25 mg DAILY YVES Administration Furosemide 40 mg 05/24/17 10:00 05/25/17 09:02 Lasix Injection - IVPUSH 40 mg DAILY YVES Administration Azithromycin 250 mls @ 250 mls/hr 05/25/17 01:00 05/25/17 11:40 Zithromax 500mg Ivpb (Pre-Docked) IVPB Not Given DAILY [facility] CEFTRIAXONE 1 G/50 ML PREMIX 50 mls @ 200 mls/hr 05/25/17 01:00 05/25/17 09:03 Ceftriaxone 1 Gm-D5w Bag IVPB 200 mls/hr DAILY YVES Administration Insulin Aspart 1 vial 05/24/17 07:00 05/25/17 17:13 Novolog Vial Sliding Scale - SQ 2 units ACHS YVES Administration Protocol Lisinopril 20 mg 05/24/17 10:00 05/25/17 09:02 Prinivil PO 20 mg DAILY YVES Administration Mupirocin 1 applic 05/24/17 10:00 05/25/17 09:05 Bactroban Ointment (For Decolonization) - NS 05/29/17 09:59 1 applic BID YVES Administration Non-Formulary Medication 5 mg 05/24/17 06:15 Famotidine [Pepcid Ac] PO 1/2 TAB DAILY [facility] Warfarin Sodium 5 mg 05/24/17 18:00 05/25/17 17:13 Coumadin - PO 5 mg DAILY@1800 YVES Administration Home Medications Medication Instructions Recorded Allopurinol [Zyloprim -] 100 mg PO DAILY 09/19/16 Aspirin [ASA -] 325 mg PO DAILY 09/19/16 Glimepiride [Glimepiride -] 1 mg PO BID 09/19/16 Simvastatin 40 mg PO DAILY 09/19/16 Carvedilol [Coreg -] 12.5 mg PO BID #60 tablet 09/21/16 Lisinopril [Prinivil] 20 mg PO DAILY #30 tablet 09/21/16 Famotidine [Pepcid Ac] 5 mg PO 1/2 TAB DAILY tablet 10/09/16 Bactroban 2% Ointment - 1 applic DAILY 05/24/17 Cephalexin [Keflex] 500 mg PO TID 05/24/17 Digoxin [Lanoxin -] 0.25 mg PO DAILY 05/24/17 Furosemide [Lasix] 40 mg PO DAILY 05/24/17 Warfarin Na [Coumadin -] 5 mg PO HS 05/24/17 05/23/17 23:20 Blood - Peripheral Venous Blood Culture - Preliminary NO GROWTH OBTAINED AFTER 48 HOURS, INCUBATION TO CONTINUE FOR 3 DAYS. 05/23/17 23:40 Blood - Peripheral Venous Blood Culture - Preliminary NO GROWTH OBTAINED AFTER 48 HOURS, INCUBATION TO CONTINUE FOR 3 DAYS. 05/24/17 03:40 Sputum - Expectorated Gram Stain - Final 05/24/17 03:40 Sputum - Expectorated Sputum Culture - Preliminary NORMAL [facility]AT[facility] 05/24/17 11:30 Urine For Antigen Detection Legionella Antigen - Final 05/24/17 11:30 Urine For Antigen Detection Streptococcus pneumoniae Antigen (M - Final Chest Xray- image LLL infiltrate, ?RML Infiltrate, vascular congestion, report pending Echo 08/2016- showed LVEF 42%, LVSF mod seemly reduced, LA mod dilated, RA, mod dilated, trace AR ASSESSMENT/PLAN: This is a 76 y/o man with a PMHx of: HTN, HLD, DM, CAD, MIs x3, Multiple Cardiac Stents, Afib (on Coumadin), Cardiomyopathy, CHF, BPH, Renal Insufficiency. Admitted to ICU for Pneumonia, CHF Exacerbation, Elevated Troponin for further evaluation of their emergent condition. # Acute community Acquired Pneumonia; will continue Iv Ceftriaone and zithromax ,ID ; is on the case. # Acute diastolic CHF Exacerbation ; Is and Os, daily weight, low sodium diet, On Lasix, digoxin, Lisinopril, coreg continue. CXR reviewed. #. Elevated Troponin I; most likely for ischemic demand # Afib with [id number], on Coumadin continue , daily INRs still subtherapeutic # Recent Bx for Basal cell ca , will apply bactroban 2x per day # Hx of CAD Continue home meds, lipitor coreg, # Hx of HTN Continue home meds # Hx of HLD Continue home med, Lipid Panel #Diabetes Mellitus; BGMs with SSI coverage, hemoglobin A1c 7.0 # GERD Continue home med # DVT Prophylaxis OOB, SCDs, Coumadin Code Status: Full Code can be transferred out of the unit Visit type - Emergency Visit Emergency Visit: Yes ED Registration Date: 05/24/17 Care time: The patient presented to the Emergency Department on the above date and was hospitalized for further evaluation of their emergent condition. - New Patient This patient is new to me today: No - Critical Care Critical Care patient: No
[2017-05-25] MEDS: CHLORHEXIDINE GLUCONATE 4% CLEANSER FOR DECOLONIZATION TP SCH (21:28)
[2017-05-25] MEDS: ATORVASTATIN CA 20 MG TABLET (FP) PO SCH (21:28)
[2017-05-25] MEDS ORDERED: HEMOQUE TEST 1 EACH EACH ONE (21:40)
[2017-05-26] MEDS: ALBUTEROL SO4 2.5/IPRATROPIUM 0.5 INH SOL 3 ML VIAL.NEB. NEB SCH ×5 (00:05→23:08)
[2017-05-26] MEDS ORDERED: HEMOQUE TEST 1 EACH EACH ONE (05:39)
[2017-05-26 06:26] LABS: INR 1.42 (0.82-1.09); PROTHROMBIN TIME (PATIENT) 16.1 SEC (9.98-11.88)
[2017-05-26] MEDS ORDERED: INSULIN (NOVOLOG) ASPART 100 UNITS/ML 10ML VIAL ONE ×3 (06:34→21:57)
[2017-05-26] MEDS: INSULIN SLIDING SCALE (NOVOLOG) 1 VIAL SQ SCH ×4 (06:34→21:58)
--- NOTE | 2017-05-26 09:32 | PN ---
Progress Note (short form) - Note Progress Note: oob in chair feels better still with purulent sputum- alvarado-green good appetite Vital Signs Period Temp Pulse Resp BP Sys/Liao Pulse Ox Last 24 Hr 98 F-98.8 F 77-107 17-29 113-154/55-96 95-95 cor-rrr lungs decreased bs at bses abd soft,nt ext no edema CBC, BMP 05/24/17 05:05 05/24/17 05:05 Microbiology 05/23/17 23:20 Blood - Peripheral Venous Blood Culture - Preliminary NO GROWTH OBTAINED AFTER 48 HOURS, INCUBATION TO CONTINUE FOR 3 DAYS. 05/23/17 23:40 Blood - Peripheral Venous Blood Culture - Preliminary NO GROWTH OBTAINED AFTER 48 HOURS, INCUBATION TO CONTINUE FOR 3 DAYS. 05/24/17 03:40 Sputum - Expectorated Gram Stain - Final 05/24/17 03:40 Sputum - Expectorated Sputum Culture - Preliminary [facility]ORM[facility]AT[facility] 05/24/17 11:30 Urine For Antigen Detection Legionella Antigen - Final 05/24/17 11:30 Urine For Antigen Detection Streptococcus pneumoniae Antigen (M - Final a/p clinically c/w pneumonia agree with treatment for CAP day #3 rocephin, can change to po ceftin when ready for discharge-complete 7 days total day #3 zithromax- will d/c please call back if needed chf exacerbation Problem List - Problems (1) Pneumonia Code(s): J18.9 - PNEUMONIA, UNSPECIFIED ORGANISM Qualifiers: Pneumonia type: due to unspecified organism Laterality: left Lung location: lower lobe of lung Qualified Code(s): J18.1 - Lobar pneumonia, unspecified organism; J18.1 - Lobar pneumonia, unspecified organism; J18.1 - Lobar pneumonia, unspecified organism (2) CHF (congestive heart failure) Code(s): I50.9 - HEART FAILURE, UNSPECIFIED Qualifiers: Congestive heart failure type: unspecified congestive heart failure type Congestive heart failure chronicity: acute on chronic Qualified Code(s ): I50.9 - Heart failure, unspecified; I50.9 - Heart failure, unspecified; I50.9 - Heart failure, unspecified; I50.9 - Heart failure, unspecified
[2017-05-26] MEDS: ASPIRIN 325 MG TABLET PO SCH (09:53)
[2017-05-26] MEDS: LISINOPRIL 20 MG TABLET (FP) PO SCH (09:54)
[2017-05-26] MEDS: CARVEDILOL 12.5 MG TABLET (FP) PO SCH ×2 (09:54→21:51)
[2017-05-26] MEDS: CEFTRIAXONE 1 G/50 ML PREMIX 50 ML IVPB SCH (09:55)
[2017-05-26] MEDS: FUROSEMIDE 40 MG/4 ML INJECTABLE VIAL IVPUSH SCH (09:55)
[2017-05-26] MEDS: DIGOXIN 0.25 MG TABLET (FP) PO SCH (09:59)
[2017-05-26] MEDS ORDERED: MUPIROCIN 2% TOPICAL OINTMENT 22 GM TUBE TP SCH (10:00)
[2017-05-26] MEDS: MUPIROCIN 2% TOPICAL OINTMENT FOR DECOLONIZATION NS SCH (12:49)
--- NOTE | 2017-05-26 13:25 | PN ---
Teaching Attending Note Name of Resident: Bogdan Mays ATTENDING PHYSICIAN STATEMENT I saw and evaluated the patient. I reviewed the resident's note and discussed the case with the resident. I agree with the resident's findings and plan as documented. SUBJECTIVE: Patient seen and examined in the ICU. Awake and alert. Still with some cough but better. No CP. No acute events overnight. Intake & Output 05/23/17 05/24/17 05/25/17 05/26/17 23:59 23:59 23:59 23:59 Intake Total 2180 1420 480 Output Total 2150 1600 925 Balance 30 -180 -445 Weight 200 lb 208 lb 1.6 oz 207 lb 1.6 oz 210 lb 3.2 oz Last Vital Signs Temp Pulse Resp BP Pulse Ox 97.9 F 102 H 19 129/77 98 05/26/17 10:00 05/26/17 10:00 05/26/17 10:00 05/26/17 10:00 05/26/17 09:00 Active Medications Acetaminophen (Tylenol -) 650 mg PO Q6H PRN PRN Reason: FEVER OR PAIN Albuterol/Ipratropium (Duoneb -) 1 amp NEB QIDR [facility] Last Admin: 05/26/17 11:16 Dose: 1 amp Aspirin (Asa -) 325 mg PO DAILY [facility] Last Admin: 05/26/17 09:53 Dose: 325 mg Atorvastatin Calcium (Lipitor -) 20 mg PO HS [facility] Last Admin: 05/25/17 21:28 Dose: 20 mg Carvedilol (Coreg -) 12.5 mg PO BID [facility] Last Admin: 05/26/17 09:54 Dose: 12.5 mg Chlorhexidine Gluconate (Hibiclens For Decolonization -) 1 applic TP HS [facility] Last Admin: 05/25/17 21:28 Dose: 1 applic Digoxin (Lanoxin -) 0.25 mg PO DAILY [facility] Last Admin: 05/26/17 09:59 Dose: 0.25 mg Furosemide (Lasix Injection -) 40 mg IVPUSH DAILY [facility] Last Admin: 05/26/17 09:55 Dose: 40 mg CEFTRIAXONE 1 G/50 ML PREMIX (Ceftriaxone 1 Gm-D5w Bag) 50 mls @ 200 mls/hr IVPB DAILY [facility] Last Admin: 05/26/17 09:55 Dose: 200 mls/hr Insulin Aspart (Novolog Vial Sliding Scale -) 1 vial SQ ACHS [facility] PRN Reason: Protocol Last Admin: 05/26/17 12:47 Dose: 10 units Lisinopril (Prinivil) 20 mg PO DAILY [facility] Last Admin: 05/26/17 09:54 Dose: 20 mg Mupirocin (Bactroban Ointment (For Decolonization) -) 1 applic NS BID [facility] Stop: 05/29/17 09:59 Last Admin: 05/26/17 12:49 Dose: 1 applic Mupirocin (Bactroban 2% Ointment -) 1 applic TP BID [facility] Last Admin: 05/26/17 13:05 Dose: 1 applic Non-Formulary Medication (Famotidine [Pepcid Ac]) 5 mg PO 1/2 TAB DAILY [facility] Warfarin Sodium (Coumadin -) 5 mg PO DAILY@1800 [facility] Last Admin: 05/25/17 17:13 Dose: 5 mg Eyes: Yes: Bandage on forehead Cardiovascular: Yes: Pulse Irregular, S1, S2 Respiratory: Yes: Cough, On Nasal O2, coarse basilar rhonchi Gastrointestinal: Yes: Normal Bowel Sounds, Soft Edema: No Integumentary: Yes: WNL Neurological: Yes: WNL, Alert, Oriented Labs: Laboratory Results - last 24 hr 05/24/17 05/25/17 05/26/17 21:54 16:51 05:00 PT with INR 16.10 H INR 1.42 H POC Glucometer 263.33550 [id number] 05/26/17 05/26/17 05:14 12:12 PT with INR INR POC Glucometer 180.92305 [phone] Problem List - Problems (1) CHF (congestive heart failure) Code(s): I50.9 - HEART FAILURE, UNSPECIFIED Qualifiers: Congestive heart failure type: unspecified congestive heart failure type Congestive heart failure chronicity: acute on chronic Qualified Code(s): I50.9 - Heart failure, unspecified; I50.9 - Heart failure, unspecified; I50.9 - Heart failure, unspecified; I50.9 - Heart failure, unspecified (2) Pneumonia Code(s): J18.9 - PNEUMONIA, UNSPECIFIED ORGANISM Qualifiers: Pneumonia type: due to unspecified organism Laterality: left Lung location: lower lobe of lung Qualified Code(s): J18.1 - Lobar pneumonia, unspecified organism; J18.1 - Lobar pneumonia, unspecified organism; J18.1 - Lobar pneumonia, unspecified organism (3) Troponin level elevated Code(s): R74.8 - ABNORMAL LEVELS OF OTHER SERUM ENZYMES (4) [place] (acute kidney injury) Code(s): N17.9 - ACUTE KIDNEY FAILURE, UNSPECIFIED (5) CAD (coronary artery disease) Code(s): I25.10 - ATHSCL HEART DISEASE OF [place] CORONARY ARTERY W/O ANG PCTRS (6) Diabetes mellitus Code(s): E11.9 - TYPE 2 DIABETES MELLITUS WITHOUT COMPLICATIONS Assessment/Plan Respiratory distress likely in the setting of CAP Elevated BNP Troponin leak ABX per ID O2 as needed Follow sputum BD TX ASA Statin Glycemic control Cardiac Telemetry monitoring Dr Gonzalez Critical care time spent in reviewing chart, evaluating patient and formulating plan - 36 minutes.
--- NOTE | 2017-05-26 14:28 | PN ---
Physical Exam: SUBJECTIVE: Patient seen and examined at bedside. No acute events overnight. Pt is still coughing up yellow/green sputum. Pt has no other complaints at this time. Denies headache, nausea, vomiting, diarrhea. OBJECTIVE: Vital Signs Period Temp Pulse Resp BP Sys/Liao Pulse Ox Last 24 Hr 97.9 F-98.8 F 77-104 17-29 121-154/61-85 95-98 GENERAL: The patient is awake, alert, and fully oriented, in no acute distress. HEAD: dressing from recent basal cell ca excision EYES: extraocular movements intact, sclera anicteric, conjunctiva clear. No ptosis. ENT:oropharynx clear without exudates, moist mucous membranes. NECK: Trachea midline, full range of motion, supple. LUNGS: Breath sounds equal, clear to auscultation bilaterally, no wheezes, crackles, no accessory muscle use. HEART: iregular rhythm, S1, S2 without murmur, rub or gallop. ABDOMEN: Soft, nontender, nondistended, normoactive bowel sounds, no guarding, no rebound, no hepatosplenomegaly, no masses. EXTREMITIES: 2+ pulses, warm, well-perfused, no edema. NEUROLOGICAL: Cranial nerves II through XII grossly intact. Normal speech, gait not observed. PSYCH: Normal mood, normal affect. SKIN: Warm, dry, normal turgor, no rashes or lesions noted Laboratory Results - last 24 hr 05/24/17 05/25/17 05/26/17 21:54 16:51 05:00 PT with INR 16.10 H INR 1.42 H POC Glucometer 263.25514 [id number] 05/26/17 05/26/17 05:14 12:12 PT with INR INR POC Glucometer 180.87310 [phone] Active Medications Generic Name Dose Route Start Last Admin Trade Name Freq PRN Reason Stop Dose Admin Acetaminophen 650 mg 05/24/17 08:15 Tylenol - PO Q6H PRN FEVER OR PAIN Albuterol/Ipratropium 1 amp 05/24/17 06:00 05/26/17 11:16 Duoneb - NEB 1 amp QIDR YVES Administration Aspirin 325 mg 05/24/17 10:00 05/26/17 09:53 Asa - PO 325 mg DAILY YVES Administration Atorvastatin Calcium 20 mg 05/24/17 22:00 05/25/17 21:28 Lipitor - PO 20 mg HS YVES Administration Carvedilol 12.5 mg 05/24/17 10:00 05/26/17 09:54 Coreg - PO 12.5 mg BID YVES Administration Chlorhexidine Gluconate 1 applic 05/24/17 22:00 05/25/17 21:28 Hibiclens For Decolonization - TP 1 applic HS YVES Administration Digoxin 0.25 mg 05/24/17 10:00 05/26/17 09:59 Lanoxin - PO 0.25 mg DAILY YVES Administration Furosemide 40 mg 05/24/17 10:00 05/26/17 09:55 Lasix Injection - IVPUSH 40 mg DAILY YVES Administration CEFTRIAXONE 1 G/50 ML PREMIX 50 mls @ 200 mls/hr 05/25/17 01:00 05/26/17 09:55 Ceftriaxone 1 Gm-D5w Bag IVPB 200 mls/hr DAILY YVES Administration Insulin Aspart 1 vial 05/24/17 07:00 05/26/17 12:47 Novolog Vial Sliding Scale - SQ 10 units ACHS YVES Administration Protocol Lisinopril 20 mg 05/24/17 10:00 05/26/17 09:54 Prinivil PO 20 mg DAILY YVES Administration Mupirocin 1 applic 05/24/17 10:00 05/26/17 12:49 Bactroban Ointment (For Decolonization) - NS 05/29/17 09:59 1 applic BID YVES Administration Mupirocin 1 applic 05/26/17 10:00 05/26/17 13:05 Bactroban 2% Ointment - TP 1 applic BID YVES Administration Non-Formulary Medication 5 mg 05/24/17 06:15 Famotidine [Pepcid Ac] PO 1/2 TAB DAILY [facility] Warfarin Sodium 5 mg 05/24/17 18:00 05/25/17 17:13 Coumadin - PO 5 mg DAILY@1800 YVES Administration ASSESSMENT/PLAN: 76M w/ PMH HTN, HLD, CAD- [place] x3, Multiple stents, Afib (on Coumadin), CVA (no residual), DM who presented to ED with cough, SOB, chills. Pt is admitted with PNA. #CAP -afebrile at this time -Ceftriaxone -ID on board -Pt improving #AF -Coumadin -INR -Lovenox bid #CHF -BNP elevated -Is & Os -low sodium diet -Lasix -Digoxin -Lisinopril #Troponinemia -likely 2/2 demand ischemia #HTN -on Lasix, coreg, lisinopril #HLD -asa -lipitor #Hx CAD -asa -lipitor #DM -ISS #GERD -On Pepcid #FEN -no on fluid -f/u labs -Na diet #PPx -on pepcid -on coumadin #Dispo -transfer to med/surg Bogdan Mays MD PGY-1 case discussed with senior and attending Visit type - Emergency Visit Emergency Visit: No - New Patient This patient is new to me today: Yes Date on this admission: 05/27/17 - Critical Care Critical Care patient: No - Discharge Referral Referred to [facility] Med [facility] No
--- NOTE | 2017-05-26 15:31 | PN ---
Teaching Attending Note Name of Resident: Dayana Herrmann ATTENDING PHYSICIAN STATEMENT I saw and evaluated the patient. I reviewed the resident's note and discussed the case with the resident. I agree with the resident's findings and plan as documented. SUBJECTIVE: Patient is feeling better today , still having some productive cough. no hemoptysis. No fever or chills, no shortness of breath. OBJECTIVE: Vital Signs Temperature 98.6 F 05/26/17 14:00 Pulse Rate 104 H 05/26/17 14:00 Respiratory Rate 20 05/26/17 14:00 Blood Pressure 129/69 05/26/17 14:00 O2 Sat by Pulse Oximetry (%) 98 05/26/17 09:00 CBCD WBC 10.6 K/mm3 (4.0-10.0) H 05/24/17 05:05 RBC 5.49 M/mm3 (4.00-5.60) 05/24/17 05:05 Hgb 15.6 GM/dL (11.7-16.9) 05/24/17 05:05 Hct 45.5 % (35.4-49) 05/24/17 05:05 MCV 82.8 fl (80-96) 05/24/17 05:05 MCHC 34.2 g/dl (32.0-35.9) 05/24/17 05:05 RDW 15.3 % (11.9-15.9) 05/24/17 05:05 Plt Count 137 K/MM3 (134-434) 05/24/17 05:05 MPV 8.6 fl (7.5-11.1) 05/24/17 05:05 CMP Sodium 137 mmol/L (136-145) 05/24/17 05:05 Potassium 3.2 mmol/L (3.5-5.1) L D 05/24/17 05:05 Chloride 99 mmol/L (98-107) 05/24/17 05:05 Carbon Dioxide 28 mmol/L (21-32) 05/24/17 05:05 Anion Gap 10 (8-16) 05/24/17 05:05 BUN 22 mg/dL (7-18) H 05/24/17 05:05 Creatinine 1.2 mg/dL (0.7-1.3) 05/24/17 05:05 Creat Clearance w eGFR 58.71 (>60) 05/23/17 23:20 Random Glucose 215 mg/dL (74-106) H 05/24/17 05:05 Calcium 8.1 mg/dL (8.5-10.1) L 05/24/17 05:05 Total Bilirubin 1.3 mg/dL (0.2-1.0) H D 05/23/17 23:20 AST 53 U/L (15-37) H D 05/23/17 23:20 ALT 49 U/L (12-78) D 05/23/17 23:20 Alkaline Phosphatase 109 U/L (45-117) 05/23/17 23:20 Total Protein 7.7 g/dl (6.4-8.2) 05/23/17 23:20 Albumin 4.0 g/dl (3.4-5.0) 05/23/17 23:20 CARDIAC ENZYMES Creatine Kinase 535 IU/L (39-308) H 05/24/17 13:22 Troponin I 0.06 ng/ml (0.00-0.05) H 05/24/17 13:22 Current Medications Generic Name Dose Route Start Last Admin Trade Name Freq PRN Reason Stop Dose Admin Acetaminophen 650 mg 05/24/17 08:15 Tylenol - PO Q6H PRN FEVER OR PAIN Albuterol/Ipratropium 1 amp 05/24/17 06:00 05/26/17 11:16 Duoneb - NEB 1 amp QIDR YVES Administration Aspirin 325 mg 05/24/17 10:00 05/26/17 09:53 Asa - PO 325 mg DAILY YVES Administration Atorvastatin Calcium 20 mg 05/24/17 22:00 05/25/17 21:28 Lipitor - PO 20 mg HS YVES Administration Carvedilol 12.5 mg 05/24/17 10:00 05/26/17 09:54 Coreg - PO 12.5 mg BID YVES Administration Chlorhexidine Gluconate 1 applic 05/24/17 22:00 05/25/17 21:28 Hibiclens For Decolonization - TP 1 applic HS YVES Administration Digoxin 0.25 mg 05/24/17 10:00 05/26/17 09:59 Lanoxin - PO 0.25 mg DAILY YVES Administration Furosemide 40 mg 05/24/17 10:00 05/26/17 09:55 Lasix Injection - IVPUSH 40 mg DAILY YVES Administration CEFTRIAXONE 1 G/50 ML PREMIX 50 mls @ 200 mls/hr 05/25/17 01:00 05/26/17 09:55 Ceftriaxone 1 Gm-D5w Bag IVPB 200 mls/hr DAILY YVES Administration Insulin Aspart 1 vial 05/24/17 07:00 05/26/17 12:47 Novolog Vial Sliding Scale - SQ 10 units ACHS YVES Administration Protocol Lisinopril 20 mg 05/24/17 10:00 05/26/17 09:54 Prinivil PO 20 mg DAILY YVES Administration Mupirocin 1 applic 05/24/17 10:00 05/26/17 12:49 Bactroban Ointment (For Decolonization) - NS 05/29/17 09:59 1 applic BID YVES Administration Mupirocin 1 applic 05/26/17 10:00 05/26/17 13:05 Bactroban 2% Ointment - TP 1 applic BID YVES Administration Non-Formulary Medication 5 mg 05/24/17 06:15 Famotidine [Pepcid Ac] PO 1/2 TAB DAILY [facility] Warfarin Sodium 5 mg 05/24/17 18:00 05/25/17 17:13 Coumadin - PO 5 mg DAILY@1800 YVES Administration Home Medications Medication Instructions Recorded Allopurinol [Zyloprim -] 100 mg PO DAILY 09/19/16 Aspirin [ASA -] 325 mg PO DAILY 09/19/16 Glimepiride [Glimepiride -] 1 mg PO BID 09/19/16 Simvastatin 40 mg PO DAILY 09/19/16 Carvedilol [Coreg -] 12.5 mg PO BID #60 tablet 09/21/16 Lisinopril [Prinivil] 20 mg PO DAILY #30 tablet 09/21/16 Famotidine [Pepcid Ac] 5 mg PO 1/2 TAB DAILY tablet 10/09/16 Bactroban 2% Ointment - 1 applic DAILY 05/24/17 Cephalexin [Keflex] 500 mg PO TID 05/24/17 Digoxin [Lanoxin -] 0.25 mg PO DAILY 05/24/17 Furosemide [Lasix] 40 mg PO DAILY 05/24/17 Warfarin Na [Coumadin -] 5 mg PO HS 05/24/17 PE: per resident's note 05/23/17 23:20 Blood - Peripheral Venous Blood Culture - Preliminary NO GROWTH OBTAINED AFTER 48 HOURS, INCUBATION TO CONTINUE FOR 3 DAYS. 05/23/17 23:40 Blood - Peripheral Venous Blood Culture - Preliminary NO GROWTH OBTAINED AFTER 48 HOURS, INCUBATION TO CONTINUE FOR 3 DAYS. 05/24/17 03:40 Sputum - Expectorated Gram Stain - Final 05/24/17 03:40 Sputum - Expectorated Sputum Culture - Preliminary NORMAL RESPIRATORY [facility] 05/24/17 11:30 Urine For Antigen Detection Legionella Antigen - Final 05/24/17 11:30 Urine For Antigen Detection Streptococcus pneumoniae Antigen (M - Final Chest Xray- image LLL infiltrate, ?RML Infiltrate, vascular congestion, report pending Echo 08/2016- showed LVEF 42%, LVSF mod seemly reduced, LA mod dilated, RA, mod dilated, trace AR ASSESSMENT AND PLAN: This is a 76 y/o man with a PMHx of: HTN, HLD, DM, CAD, MIs x3, Multiple Cardiac Stents, Afib (on Coumadin), Cardiomyopathy, CHF, BPH, Renal Insufficiency. Admitted to ICU for Pneumonia, CHF Exacerbation, Elevated Troponin for further evaluation of their emergent condition. # Acute community Acquired Pneumonia; continue Iv Ceftriaone ; is on the case. completed Zithromax # Acute diastolic CHF Exacerbation ; Is and Os, daily weight, low sodium diet, On Lasix, digoxin, Lisinopril, coreg continue. CXR reviewed. # Afib with [id number], on Coumadin continue , daily INRs still subtherapeutic , Added Lovenox 90mg sq Bid to bridge coumadin. # Elevated Troponin I; most likely for ischemic demand # Recent Bx for Basal cell ca , will apply bactroban 2x per day # Hx of CAD Continue home meds, lipitor coreg, # Hx of HTN Continue home meds # Hx of HLD Continue home med, Lipid Panel #Diabetes Mellitus; BGMs with SSI coverage, hemoglobin A1c 7.0, on Glimepiride at home continue upon discharge. # GERD Continue home med # DVT Prophylaxis OOB, SCDs, Coumadin Code Status: Full Code can be transferred out of the unit
[2017-05-26] MEDS ORDERED: FAMOTIDINE 5 MG PO SCH (17:06)
[2017-05-26] MEDS ORDERED: ACETAMINOPHEN 325 MG TABLET (FP) PO PRN (17:06)
[2017-05-26] MEDS ORDERED: WARFARIN NA 5 MG TABLET (UD) PO SCH (18:00)
--- NOTE | 2017-05-26 18:24 | PN ---
Physical Exam: SUBJECTIVE: Patient seen and examined. Pt still c/o productive cough. Pt c/o itchy rash on bandar arms. Pt denies fever, chills, hemoptysis, sob. Pt has no complaints. No events overnight. OBJECTIVE: Vital Signs Period Temp Pulse Resp BP Sys/Liao Pulse Ox Last 24 Hr 97.9 F-98.8 F 77-104 17-29 121-154/61-85 95-98 GENERAL: The patient is awake, alert, and fully oriented, in no acute distress. EYES: Extraocular movements intact, sclera anicteric, conjunctiva clear. No ptosis. ENT: Moist mucous membranes. NECK: Trachea midline, supple. LUNGS: Breath sounds equal, clear to auscultation bilaterally, no wheezes, no crackles, no accessory muscle use. HEART: Regular rate and rhythm, S1, S2 without murmur, rub or gallop. ABDOMEN: Nontender, nondistended. EXTREMITIES: Warm, well-perfused, no edema. PSYCH: Normal mood, normal affect. SKIN: itchy rash on bandar arms, no rash visualized, scratch saroj/excoriations noted near Left dorsal wrist. Laboratory Results - last 24 hr 05/24/17 05/26/17 05/26/17 21:54 05:00 05:14 PT with INR 16.10 H INR 1.42 H POC Glucometer 263.32618 180.22523 05/26/17 12:12 PT with INR INR POC Glucometer 370.62784 Active Medications Generic Name Dose Route Start Last Admin Trade Name Freq PRN Reason Stop Dose Admin Acetaminophen 650 mg 05/26/17 17:06 Tylenol - PO Q6H PRN FEVER OR PAIN Albuterol/Ipratropium 1 amp 05/26/17 18:00 05/26/17 17:11 Duoneb - NEB 1 amp QIDR YVES Administration Aspirin 325 mg 05/27/17 10:00 Asa - PO DAILY YVES Atorvastatin Calcium 20 mg 05/26/17 22:00 Lipitor - PO HS YVES Carvedilol 12.5 mg 05/26/17 22:00 Coreg - PO BID YVES Chlorhexidine Gluconate 1 applic 05/26/17 22:00 Hibiclens For Decolonization - TP HS YVES Digoxin 0.25 mg 05/27/17 10:00 Lanoxin - PO DAILY YVES Enoxaparin Sodium 90 mg 05/26/17 22:00 Lovenox - SQ BID [facility] Furosemide 40 mg 05/27/17 10:00 Lasix Injection - IVPUSH DAILY [facility] CEFTRIAXONE 1 G/50 ML PREMIX 50 mls @ 200 mls/hr 05/27/17 10:00 Ceftriaxone 1 Gm-D5w Bag IVPB DAILY [facility] Insulin Aspart 1 vial 05/26/17 22:00 Novolog Vial Sliding Scale - SQ ACHS [facility] Protocol Lisinopril 20 mg 05/27/17 10:00 Prinivil PO DAILY [facility] Mupirocin 1 applic 05/26/17 22:00 Bactroban 2% Ointment - TP BID [facility] Mupirocin 1 applic 05/26/17 22:00 Bactroban Ointment (For Decolonization) - NS 05/29/17 09:59 BID [facility] Non-Formulary Medication 5 mg 05/26/17 17:06 Famotidine [Pepcid Ac] PO 1/2 TAB DAILY [facility] Warfarin Sodium 5 mg 05/26/17 18:00 Coumadin - PO DAILY@1800 [facility] ASSESSMENT/PLAN: 76yo M with PMH of chf, htn, hld, CAD with [place] x3 and multiple stents, afib (on Coumadin), CVA (no residual), and DM presenting with cough, SOB and chills. Pt admitted with chf exacerbation. 1) sepsis 2/2 acute exacerbation of CHF vs CAP - from tachycardia, tachypnea, leukocytosis, and possible source in the lung - blood cultures (-) x 48 hrs - continue Ceftriaxone - ID following - I & O's - daily weights - continue Lasix, Lisinopril, Coreg, and Digoxin - last echo 08/2016 -> moderate severely reduced Left ventricular function 2) afib - continue Coumadin - f/u INR (subtherapeutic) - Lovenox 90mg SQ BID added to bridge Coumadin 3) ithcy rash to bandar arms - pt applied lotion - will f/u in the am 3) Troponinemia - likely 2/2 demand ischemia - trending down 4) htn - continue Coreg, Lisinopril 5) hld -continue Lipitor 6) DM - ISS - fingersticks ASHS 7) recent biopsy for Basal Cell Ca - continue Bactroban BID 8) FEN - Fluids: encourage po - Electrolytes: wnl, continue to monitor - Nutrition: diabetic, low sodium diet 9) DVT prophylaxis - continue Coumadin and Lovenox Visit type - Emergency Visit Emergency Visit: Yes ED Registration Date: 05/24/17 Care time: The patient presented to the Emergency Department on the above date and was hospitalized for further evaluation of their emergent condition. - New Patient This patient is new to me today: Yes Date on this admission: 05/26/17 - Critical Care Critical Care patient: No
[2017-05-26] MEDS: MUPIROCIN 2% TOPICAL OINTMENT 22 GM TUBE TP SCH (21:53)
[2017-05-26] MEDS: ENOXAPARIN NA (PORCINE) 80 MG/0.8 ML DISP.SYRIN SQ SCH (21:53)
[2017-05-26] MEDS ORDERED: ENOXAPARIN NA (PORCINE) 80 MG/0.8 ML DISP.SYRIN SQ SCH (22:00)
[2017-05-26] MEDS ORDERED: CHLORHEXIDINE GLUCONATE 4% CLEANSER FOR DECOLONIZATION TP SCH (22:00)
[2017-05-26] MEDS ORDERED: ATORVASTATIN CA 20 MG TABLET (FP) PO SCH (22:00)
[2017-05-26] MEDS ORDERED: MUPIROCIN 2% TOPICAL OINTMENT FOR DECOLONIZATION NS SCH (22:00)
[2017-05-27] MEDS: ALBUTEROL SO4 2.5/IPRATROPIUM 0.5 INH SOL 3 ML VIAL.NEB. NEB SCH ×2 (05:42→11:45)
[2017-05-27] MEDS: INSULIN SLIDING SCALE (NOVOLOG) 1 VIAL SQ SCH ×2 (06:56→12:44)
[2017-05-27 07:34] LABS: BASOPHIL 0.8 % (0-2.0); MCH 28.3 pg (25.7-33.7); MEAN CELL VOLUME 83.2 fl (80-96); MEAN PLT VOLUME 8.5 fl (7.5-11.1); NEUTROPHILS 63.2 % (42.8-82.8); PLATELET COUNT 187 K/MM3 (134-434); RDW 15.3 % (11.9-15.9); WHITE BLOOD COUNT 8.6 K/mm3 (4.0-10.0)
[2017-05-27] MEDS ORDERED: diphenhydrAMINE HCL 25 MG CAPSULE (FP) PO PRN (07:54)
--- NOTE | 2017-05-27 08:00 | PN ---
Physical Exam: SUBJECTIVE: Patient seen and examined. Pt c/o itchiness to extremities, bandar arms and legs. Pt feeling well this morning, and wants to go home. No events overnight. OBJECTIVE: Vital Signs Period Temp Pulse Resp BP Sys/Liao Pulse Ox Last 24 Hr 97.7 F-99 F 86-104 19-22 127-154/66-85 98-98 GENERAL: The patient is awake, alert, and fully oriented, in no acute distress. HEAD: Normal with no signs of trauma. EYES: Extraocular movements intact, sclera anicteric, conjunctiva clear. No ptosis. ENT: Moist mucous membranes. NECK: Trachea midline, supple. LUNGS: Breath sounds equal, clear to auscultation bilaterally, no wheezes, no crackles, no accessory muscle use. HEART: Irregularly irregular, S1, S2 without murmur, rub or gallop. EXTREMITIES: Warm, well-perfused, no edema. NEUROLOGICAL: Cranial nerves II through XII grossly intact. Normal speech, gait steady. PSYCH: Normal mood, normal affect. SKIN: Pt c/o itchiness to bandar arms and legs. No rash visualized. Scratch saroj/ excoriations noted near dorsal bandar wrist. Laboratory Results - last 24 hr 05/24/17 05/25/17 05/26/17 21:54 21:31 05:14 WBC RBC Hgb Hct MCV MCH MCHC RDW Plt Count MPV Neutrophils % Lymphocytes % Monocytes % Eosinophils % Basophils % PT with INR INR Sodium Potassium Chloride Carbon Dioxide Anion Gap BUN Creatinine POC Glucometer 263.16853 291.57095 180.91755 Random Glucose Calcium Phosphorus Magnesium 05/26/17 05/26/17 05/26/17 12:12 16:43 21:56 WBC RBC Hgb Hct MCV MCH MCHC RDW Plt Count MPV Neutrophils % Lymphocytes % Monocytes % Eosinophils % Basophils % PT with INR INR Sodium Potassium Chloride Carbon Dioxide Anion Gap BUN Creatinine POC Glucometer 370.18366 193.10256 236 Random Glucose Calcium Phosphorus Magnesium 05/27/17 05/27/17 05/27/17 06:40 06:40 06:40 WBC 8.6 RBC 5.71 H Hgb 16.2 Hct 47.5 MCV 83.2 MCH 28.3 MCHC 34.0 RDW 15.3 Plt Count 187 D MPV 8.5 Neutrophils % 63.2 D Lymphocytes % 25.6 D Monocytes % 7.4 Eosinophils % 3.0 D Basophils % 0.8 PT with INR 17.20 H INR 1.52 H Sodium 137 Potassium 4.5 D Chloride 98 Carbon Dioxide 30 Anion Gap 9 BUN 38 H D Creatinine 1.3 POC Glucometer Random Glucose 235 H Calcium 8.9 Phosphorus 3.7 D Magnesium 2.3 05/27/17 06:54 WBC RBC Hgb Hct MCV MCH MCHC RDW Plt Count MPV Neutrophils % Lymphocytes % Monocytes % Eosinophils % Basophils % PT with INR INR Sodium Potassium Chloride Carbon Dioxide Anion Gap BUN Creatinine POC Glucometer 223 Random Glucose Calcium Phosphorus Magnesium Active Medications Generic Name Dose Route Start Last Admin Trade Name Freq PRN Reason Stop Dose Admin Acetaminophen 650 mg 05/26/17 17:06 Tylenol - PO Q6H PRN FEVER OR PAIN Albuterol/Ipratropium 1 amp 05/26/17 18:00 05/27/17 05:42 Duoneb - NEB 1 amp QIDR YVES Administration Aspirin 325 mg 05/27/17 10:00 Asa - PO DAILY [facility] Atorvastatin Calcium 20 mg 05/26/17 22:00 05/26/17 21:51 Lipitor - PO 20 mg HS YVES Administration Carvedilol 12.5 mg 05/26/17 22:00 05/26/17 21:51 Coreg - PO 12.5 mg BID YVES Administration Digoxin 0.25 mg 05/27/17 10:00 Lanoxin - PO DAILY [facility] Enoxaparin Sodium 90 mg 05/26/17 22:00 05/26/17 21:53 Lovenox - SQ 90 mg BID YVES Administration Furosemide 40 mg 05/27/17 10:00 Lasix Injection - IVPUSH DAILY [facility] CEFTRIAXONE 1 G/50 ML PREMIX 50 mls @ 200 mls/hr 05/27/17 10:00 Ceftriaxone 1 Gm-D5w Bag IVPB DAILY [facility] Insulin Aspart 1 vial 05/26/17 22:00 05/27/17 06:56 Novolog Vial Sliding Scale - SQ 4 units ACHS YVES Administration Protocol Lisinopril 20 mg 05/27/17 10:00 Prinivil PO DAILY [facility] Mupirocin 1 applic 05/26/17 22:00 05/26/17 21:53 Bactroban 2% Ointment - TP 1 applic BID YVES Administration Non-Formulary Medication 5 mg 05/26/17 17:06 Famotidine [Pepcid Ac] PO 1/2 TAB DAILY [facility] Warfarin Sodium 5 mg 05/26/17 18:00 05/26/17 18:33 Coumadin - PO 5 mg DAILY@1800 [facility] Administration ASSESSMENT/PLAN: 76yo M with PMH of chf, htn, hld, CAD with [place] x3 and multiple stents, afib (on Coumadin), CVA (no residual), and DM presenting with cough, SOB and chills. Pt admitted with chf exacerbation. 1) sepsis 2/2 acute exacerbation of CHF vs CAP - from tachycardia, tachypnea, leukocytosis, and possible source in the lung - blood cultures (-) x 72 hrs - 4 Days of Ceftriaxone IVPB - ID following -> can now switch pt to Ceftin po x 7 days - I & O's - daily weights - continue Lasix, Lisinopril, Coreg, and Digoxin - last echo 08/2016 -> moderate severely reduced Left ventricular function 2) afib - continue Coumadin - f/u INR (subtherapeutic) - Lovenox 90mg SQ BID added to bridge Coumadin 3) ithciness to extremities - Benadryl 25mg po q6hr prn 3) Troponinemia - likely 2/2 demand ischemia - trending down 4) htn - continue Coreg, Lisinopril 5) hld -continue Lipitor 6) DM - ISS - fingersticks ACHS 7) recent biopsy for Basal Cell Ca - continue Bactroban BID 8) FEN - Fluids: encourage po - Electrolytes: wnl, continue to monitor - Nutrition: diabetic, low sodium diet 9) DVT prophylaxis - continue Coumadin and Lovenox Visit type - Emergency Visit Emergency Visit: Yes ED Registration Date: 05/24/17 Care time: The patient presented to the Emergency Department on the above date and was hospitalized for further evaluation of their emergent condition. - New Patient This patient is new to me today: No - Critical Care Critical Care patient: No
[2017-05-27 08:05] LABS: INR 1.52 (0.82-1.09); PROTHROMBIN TIME (PATIENT) 17.2 SEC (9.98-11.88)
[2017-05-27 08:32] LABS: ANION GAP 9 (8-16); CALCIUM 8.9 mg/dL (8.5-10.1); CO2 30 mmol/L (21-32); CREATININE 1.3 mg/dL (0.7-1.3); GLUCOSE,RANDOM 235 mg/dL (74-106); MAGNESIUM 2.3 mg/dL (1.8-2.4); PHOSPHOROUS 3.7 mg/dL (2.5-4.9)
[2017-05-27] MEDS ORDERED: ASPIRIN 325 MG TABLET PO SCH (10:00)
[2017-05-27] MEDS ORDERED: CEFTRIAXONE 1 G/50 ML PREMIX 50 ML IVPB SCH (10:00)
[2017-05-27] MEDS ORDERED: FUROSEMIDE 40 MG/4 ML INJECTABLE VIAL IVPUSH SCH (10:00)
[2017-05-27] MEDS ORDERED: DIGOXIN 0.25 MG TABLET (FP) PO SCH (10:00)
[2017-05-27] MEDS ORDERED: PT OWN MED DRAWER 7, Y5N ONE (10:00)
[2017-05-27] MEDS ORDERED: LISINOPRIL 20 MG TABLET (FP) PO SCH (10:00)
[2017-05-27] MEDS: ENOXAPARIN NA (PORCINE) 80 MG/0.8 ML DISP.SYRIN SQ SCH (10:10)
[2017-05-27] MEDS: MUPIROCIN 2% TOPICAL OINTMENT 22 GM TUBE TP SCH (10:12)
[2017-05-27] MEDS: CARVEDILOL 12.5 MG TABLET (FP) PO SCH (10:13)
[2017-05-27 10:24] VITALS: BP 127/81; TEMP 98.8
--- NOTE | 2017-05-27 11:40 | PN ---
Teaching Attending Note Name of Resident: Dayana Herrmann ATTENDING PHYSICIAN STATEMENT I saw and evaluated the patient. I reviewed the resident's note and discussed the case with the resident. I agree with the resident's findings and plan as documented. SUBJECTIVE: Patient is feeling better, wants to go home. No fever or chills, no shortness of breath. OBJECTIVE: Vital Signs Temperature 98.8 F 05/27/17 10:00 Pulse Rate 81 05/27/17 10:13 Respiratory Rate 20 05/27/17 10:00 Blood Pressure 127/81 05/27/17 10:00 O2 Sat by Pulse Oximetry (%) 98 05/27/17 09:00 CBCD WBC 8.6 K/mm3 (4.0-10.0) 05/27/17 06:40 RBC 5.71 M/mm3 (4.00-5.60) H 05/27/17 06:40 Hgb 16.2 GM/dL (11.7-16.9) 05/27/17 06:40 Hct 47.5 % (35.4-49) 05/27/17 06:40 MCV 83.2 fl (80-96) 05/27/17 06:40 MCHC 34.0 g/dl (32.0-35.9) 05/27/17 06:40 RDW 15.3 % (11.9-15.9) 05/27/17 06:40 Plt Count 187 K/MM3 (134-434) D 05/27/17 06:40 MPV 8.5 fl (7.5-11.1) 05/27/17 06:40 CMP Sodium 137 mmol/L (136-145) 05/27/17 06:40 Potassium 4.5 mmol/L (3.5-5.1) D 05/27/17 06:40 Chloride 98 mmol/L (98-107) 05/27/17 06:40 Carbon Dioxide 30 mmol/L (21-32) 05/27/17 06:40 Anion Gap 9 (8-16) 05/27/17 06:40 BUN 38 mg/dL (7-18) H D 05/27/17 06:40 Creatinine 1.3 mg/dL (0.7-1.3) 05/27/17 06:40 Creat Clearance w eGFR 58.71 (>60) 05/23/17 23:20 Random Glucose 235 mg/dL (74-106) H 05/27/17 06:40 Calcium 8.9 mg/dL (8.5-10.1) 05/27/17 06:40 Total Bilirubin 1.3 mg/dL (0.2-1.0) H D 05/23/17 23:20 AST 53 U/L (15-37) H D 05/23/17 23:20 ALT 49 U/L (12-78) D 05/23/17 23:20 Alkaline Phosphatase 109 U/L (45-117) 05/23/17 23:20 Total Protein 7.7 g/dl (6.4-8.2) 05/23/17 23:20 Albumin 4.0 g/dl (3.4-5.0) 05/23/17 23:20 CARDIAC ENZYMES Creatine Kinase 535 IU/L (39-308) H 05/24/17 13:22 Troponin I 0.06 ng/ml (0.00-0.05) H 05/24/17 13:22 Current Medications Generic Name Dose Route Start Last Admin Trade Name Freq PRN Reason Stop Dose Admin Acetaminophen 650 mg 05/26/17 17:06 Tylenol - PO Q6H PRN FEVER OR PAIN Albuterol/Ipratropium 1 amp 05/26/17 18:00 05/27/17 05:42 Duoneb - NEB 1 amp QIDR YVES Administration Aspirin 325 mg 05/27/17 10:00 05/27/17 10:10 Asa - PO 325 mg DAILY YVES Administration Atorvastatin Calcium 20 mg 05/26/17 22:00 05/26/17 21:51 Lipitor - PO 20 mg HS YVES Administration Carvedilol 12.5 mg 05/26/17 22:00 05/27/17 10:13 Coreg - PO 12.5 mg BID YVES Administration Digoxin 0.25 mg 05/27/17 10:00 05/27/17 10:13 Lanoxin - PO 0.25 mg DAILY YVES Administration Diphenhydramine HCl 25 mg 05/27/17 07:54 Benadryl - PO Q6H PRN FOR ITCHING Enoxaparin Sodium 90 mg 05/26/17 22:00 05/27/17 10:10 Lovenox - SQ 90 mg BID YVES Administration Furosemide 40 mg 05/27/17 10:00 05/27/17 10:12 Lasix Injection - IVPUSH 40 mg DAILY YVES Administration CEFTRIAXONE 1 G/50 ML PREMIX 50 mls @ 200 mls/hr 05/27/17 10:00 05/27/17 10:12 Ceftriaxone 1 Gm-D5w Bag IVPB 200 mls/hr DAILY YVES Administration Insulin Aspart 1 vial 05/26/17 22:00 05/27/17 06:56 Novolog Vial Sliding Scale - SQ 4 units ACHS YVES Administration Protocol Lisinopril 20 mg 05/27/17 10:00 05/27/17 10:10 Prinivil PO 20 mg DAILY YVES Administration Mupirocin 1 applic 05/26/17 22:00 05/27/17 10:12 Bactroban 2% Ointment - TP 1 applic BID [facility] Administration Non-Formulary Medication 5 mg 05/26/17 17:06 Famotidine [Pepcid Ac] PO 1/2 TAB DAILY [facility] Warfarin Sodium 5 mg 05/26/17 18:00 05/26/17 18:33 Coumadin - PO 5 mg DAILY@1800 YVES Administration Home Medications Medication Instructions Recorded Allopurinol [Zyloprim -] 100 mg PO DAILY 09/19/16 Aspirin [ASA -] 325 mg PO DAILY 09/19/16 Glimepiride [Glimepiride -] 1 mg PO BID 09/19/16 Simvastatin 40 mg PO DAILY 09/19/16 Carvedilol [Coreg -] 12.5 mg PO BID #60 tablet 09/21/16 Lisinopril [Prinivil] 20 mg PO DAILY #30 tablet 09/21/16 Famotidine [Pepcid Ac] 5 mg PO 1/2 TAB DAILY tablet 10/09/16 Bactroban 2% Ointment - 1 applic DAILY 05/24/17 Cephalexin [Keflex] 500 mg PO TID 05/24/17 Digoxin [Lanoxin -] 0.25 mg PO DAILY 05/24/17 Furosemide [Lasix] 40 mg PO DAILY 05/24/17 Warfarin Na [Coumadin -] 5 mg PO HS 05/24/17 PE: Lungs are clear to auscultation Cardio: NSR , rate controlled rest of PE per resident' note ASSESSMENT AND PLAN: This is a 76 y/o man with a PMHx of: HTN, HLD, DM, CAD, [place] x3, Multiple Cardiac Stents, Afib (on Coumadin), Cardiomyopathy, CHF, BPH, Renal Insufficiency. Admitted to ICU for Pneumonia, CHF Exacerbation, Elevated Troponin for further evaluation of their emergent condition. # Acute community Acquired Pneumonia; doing better today, no fever or chills, no shortness of breath, continue with Ceftin 500mg po bid x 7 days ; as per . completed Zithromax # Acute diastolic CHF Exacerbation ; continue LAsix, low sodium diet, digoxin, Lisinopril, coreg continue. CXR reviewed. # Afib with [id number], on Coumadin continue ,discussed with senior software quality engineer , advised that he continues taking coumadin 5mg daily and has an appointment for this May.29 with for INR check . # Elevated Troponin I; most likely for ischemic demand # Recent Bx for Basal cell ca , will apply bactroban 2x per day, also patient was prescribed keflex for his wound but patient will be on Ceftin 500mg po bid x 7days that should his forehead wound. # Hx of CAD Continue home meds, lipitor coreg. # Hx of HTN Continue home meds # Hx of HLD Continue home med, Lipid Panel #Diabetes Mellitus; hemoglobin A1c 7.0, on Glimepiride at home continue upon discharge. # GERD Continue home med # DVT Prophylaxis OOB, SCDs, Coumadin Code Status: Full Code will discharge patient home today
--- NOTE | 2017-05-27 12:07 | PN ---
Progress Note (short form) - Note Progress Note: PULMONARY Feels well, denies shortness of breath. Ambulating in hallways. Last Vital Signs Temp Pulse Resp BP Pulse Ox 98.8 F 81 20 127/81 98 05/27/17 10:00 05/27/17 10:13 05/27/17 10:00 05/27/17 10:00 05/27/17 09:00 Gen: NAD at rest Heart: RRR Lung: scattered rhonchi Abd: soft, nontender Ext: no edema CBC, BMP 05/27/17 06:40 05/27/17 06:40 Active Medications Acetaminophen (Tylenol -) 650 mg PO Q6H PRN PRN Reason: FEVER OR PAIN Albuterol/Ipratropium (Duoneb -) 1 amp NEB QIDR [facility] Last Admin: 05/27/17 05:42 Dose: 1 amp Aspirin (Asa -) 325 mg PO DAILY [facility] Last Admin: 05/27/17 10:10 Dose: 325 mg Atorvastatin Calcium (Lipitor -) 20 mg PO HS [facility] Last Admin: 05/26/17 21:51 Dose: 20 mg Carvedilol (Coreg -) 12.5 mg PO BID [facility] Last Admin: 05/27/17 10:13 Dose: 12.5 mg Digoxin (Lanoxin -) 0.25 mg PO DAILY [facility] Last Admin: 05/27/17 10:13 Dose: 0.25 mg Diphenhydramine HCl (Benadryl -) 25 mg PO Q6H PRN PRN Reason: FOR ITCHING Enoxaparin Sodium (Lovenox -) 90 mg SQ BID [facility] Last Admin: 05/27/17 10:10 Dose: 90 mg Furosemide (Lasix Injection -) 40 mg IVPUSH DAILY [facility] Last Admin: 05/27/17 10:12 Dose: 40 mg CEFTRIAXONE 1 G/50 ML PREMIX (Ceftriaxone 1 Gm-D5w Bag) 50 mls @ 200 mls/hr IVPB DAILY [facility] Last Admin: 05/27/17 10:12 Dose: 200 mls/hr Insulin Aspart (Novolog Vial Sliding Scale -) 1 vial SQ ACHS [facility] PRN Reason: Protocol Last Admin: 05/27/17 06:56 Dose: 4 units Lisinopril (Prinivil) 20 mg PO DAILY [facility] Last Admin: 05/27/17 10:10 Dose: 20 mg Mupirocin (Bactroban 2% Ointment -) 1 applic TP BID [facility] Last Admin: 05/27/17 10:12 Dose: 1 applic Non-Formulary Medication (Famotidine [Pepcid Ac]) 5 mg PO 1/2 TAB DAILY [facility] Warfarin Sodium (Coumadin -) 5 mg PO DAILY@1800 [facility] Last Admin: 05/26/17 18:33 Dose: 5 mg A/P Pneumonia Acute on Chronic Systolic Heart Failure Atrial Fibrillation +Troponins likely Demand Ischemia HTN DM Hyperlipidemia - complete antibiotics - lasix - monitor urine output, creatinine - rate control - continue anticoagulation
--- NOTE | 2017-05-27 12:36 | DS ---
Physical Exam: SUBJECTIVE: Patient seen and examined. Pt c/o itchiness to extremities, bandar arms and legs. Pt feeling well this morning, and wants to go home. No events overnight. OBJECTIVE: Vital Signs Period Temp Pulse Resp BP Sys/Liao Pulse Ox Last 24 Hr 97.7 F-99 F 81-104 20-22 127-143/66-85 98-98 PHYSICAL EXAM GENERAL: The patient is awake, alert, and fully oriented, in no acute distress. HEAD: Normal with no signs of trauma. EYES: Extraocular movements intact, sclera anicteric, conjunctiva clear. No ptosis. ENT: Moist mucous membranes. NECK: Trachea midline, supple. LUNGS: Breath sounds equal, clear to auscultation bilaterally, no wheezes, no crackles, no accessory muscle use. HEART: Irregularly irregular, S1, S2 without murmur, rub or gallop. EXTREMITIES: Warm, well-perfused, no edema. NEUROLOGICAL: Cranial nerves II through XII grossly intact. Normal speech, gait steady. PSYCH: Normal mood, normal affect. SKIN: Pt c/o itchiness to bandar arms and legs. No rash visualized. Scratch saroj/ excoriations noted near dorsal bandar wrist. LABS Laboratory Results - last 24 hr 05/25/17 05/26/17 05/26/17 21:31 12:12 16:43 WBC RBC Hgb Hct MCV MCH MCHC RDW Plt Count MPV Neutrophils % Lymphocytes % Monocytes % Eosinophils % Basophils % PT with INR INR Sodium Potassium Chloride Carbon Dioxide Anion Gap BUN Creatinine POC Glucometer 291.39132 370.50102 193.04919 Random Glucose Calcium Phosphorus Magnesium 05/26/17 05/27/17 05/27/17 21:56 06:40 06:40 WBC 8.6 RBC 5.71 H Hgb 16.2 Hct 47.5 MCV 83.2 MCH 28.3 MCHC 34.0 RDW 15.3 Plt Count 187 D MPV 8.5 Neutrophils % 63.2 D Lymphocytes % 25.6 D Monocytes % 7.4 Eosinophils % 3.0 D Basophils % 0.8 PT with INR INR Sodium 137 Potassium 4.5 D Chloride 98 Carbon Dioxide 30 Anion Gap 9 BUN 38 H D Creatinine 1.3 POC Glucometer 236 Random Glucose 235 H Calcium 8.9 Phosphorus 3.7 D Magnesium 2.3 05/27/17 05/27/17 06:40 06:54 WBC RBC Hgb Hct MCV MCH MCHC RDW Plt Count MPV Neutrophils % Lymphocytes % Monocytes % Eosinophils % Basophils % PT with INR 17.20 H INR 1.52 H Sodium Potassium Chloride Carbon Dioxide Anion Gap BUN Creatinine POC Glucometer 223 Random Glucose Calcium Phosphorus Magnesium HOSPITAL COURSE: Date of Admission:05/24/17 Date of Discharge: 05/27/17 76yo M with PMH of chf, htn, hld, CAD with [place] x3 and multiple stents, afib (on Coumadin), CVA (no residual), and DM presenting with cough, SOB and chills. Pt admitted with chf exacerbation. Pt received 4 days of Ceftrianxone IVPB, and not converted to Ceftin 500mg po BID for 7 more days. Pt's INR was subtherapeutic on Coumadin, so Lovenox bridge was initiated. Pt c/o itchiness to his arms first, then his legs as well. Upon exam, no rash was visualized. Pt given Benadryl. Home medications were resumed. Pt's symptoms of sob, orthopnea, cough, have subsided. Pt is independent for ambulation. Pt is stable for discharge home. Minutes to complete discharge: 35 Discharge Summary Reason For Visit: CHF,PNA,ELEVATED TROPONIN Current Active Problems CHF (congestive heart failure) (Acute) Pneumonia (Acute) Troponin level elevated (Acute) Condition: Improved - Instructions Diet, Activity, Other Instructions: You were treated for pneumonia and exacerbation of your Congestive Heart Failure condition. Please continue taking your medications as prescribed. Please take your antibiotic, Ceftin, twice a day for 7 days. Please continue eating a low sodium diet. Increase your activity level as tolerated. Please make an appointment to follow-up with your Diamond Sorter (Dr. Ugalde) tomorrow. Please make an appointment to follow-up with your Primary Care Doctor (Dr. Story ) within 1 week of leaving the hospital. Please return to the hospital immediately if you experience persistent or worsening shortness of breath, cough, or for any medical emergency. Referrals: Carlos Story MD [Staff Physician] - 1 Week Nolberto Ugalde MD [Staff Physician] - 05/28/17 (Please see Dr. Ugalde tomorrow.) Disposition: HOME - Home Medications Comprehensive Discharge Medication List: Ambulatory Orders Allopurinol [Zyloprim -] 100 mg PO DAILY 09/19/16 Aspirin [ASA -] 325 mg PO DAILY 09/19/16 Glimepiride [Glimepiride -] 1 mg PO BID 09/19/16 Simvastatin 40 mg PO DAILY 09/19/16 Carvedilol [Coreg -] 12.5 mg PO BID #60 tablet 09/21/16 Lisinopril [Prinivil] 20 mg PO DAILY #30 tablet 09/21/16 Famotidine [Pepcid AC] 5 mg PO 1/2 TAB DAILY tablet 10/09/16 Digoxin [Lanoxin -] 0.25 mg PO DAILY 05/24/17 Furosemide [Lasix] 40 mg PO DAILY 05/24/17 Warfarin Na [Coumadin -] 5 mg PO HS 05/24/17 Cefuroxime Axetil [Ceftin -] 500 mg PO Q12H #14 tablet 05/27/17 Mupirocin Ointment [Bactroban Ointment (For Decolonization) -] 1 applic NS BID # 1 tube 05/27/17 This patient is new to me today: No Emergency Visit: Yes ED Registration Date: 05/24/17 Care time: The patient presented to the Emergency Department on the above date and was hospitalized for further evaluation of their emergent condition. Critical Care patient: No - Discharge Referral [facility] No
[2017-05-27 13:19] VITALS: PULSE 72
== END 2017-05-27 14:01 | disposition home or self-care (01) | DRG 291 ==
LOC: FER 23:10 → JICU 05-24 03:15 → J5S 05-26 16:48
PROVIDERS: ADMIT Internal Medicine; ATTEND Internal Medicine
DX: I11.0 Hypertensive heart disease with heart failure (principal); J18.9 Pneumonia, unspecified organism; I24.8 Other forms of acute ischemic heart disease; E11.9 Type 2 diabetes mellitus without complications; E78.5 Hyperlipidemia, unspecified; I48.91 Unspecified atrial fibrillation; I25.10 Atherosclerotic heart disease of native coronary artery without angina pectoris; Z98.61 Coronary angioplasty status; I42.9 Cardiomyopathy, unspecified; K21.9 Gastro-esophageal reflux disease without esophagitis; I50.33 Acute on chronic diastolic (congestive) heart failure
CPT/HCPCS: 36415; 71010-TC; 80048; 80053; 80061; 80162; 81003; 81015; 82043; 82306; 82550; 82553; 82570; 82607; 82803; 83036; 83605; 83721; 83735; 83880; 84100; 84153; 84443; 84484; 84550; 85025; 85610; 85730; 86038; 86140; 86593; 87040; 87070; 87086; 87205; 87899; 93005; 94640; 99284-25

== ENCOUNTER 2020-10-17 13:59 | Emergency (ER) | payer OTHER, BC ==
[2020-10-17 14:34] VITALS: BP 103/56; PULSE 96; TEMP 98.1; BMI 28.7
== END 2020-10-17 15:50 | disposition home or self-care (01) ==
LOC: FER 13:59
DX: S09.90XA Unspecified injury of head, initial encounter (principal)
CPT/HCPCS: 70450-TC; 72125-TC; 99284-25

== ENCOUNTER 2022-02-07 16:30 | Inpatient (IN) | payer OTHER, BC ==
[2022-02-07 17:46] LABS: HEMATOCRIT 32.3 % (35.4-49); HEMOGLOBIN 10.8 G/dL (11.7-16.9); MCH 25.8 pg (25.7-33.7); MCHC 33.5 g/dl (32.0-35.9); MEAN CELL VOLUME 77.1 fl (80-96); MEAN PLT VOLUME 8.3 fl (7.5-11.1); PLATELET COUNT 289.5 10^3/uL (134-434); RBC 4.19 10^6/uL (4.00-5.60); RDW 18.3 % (11.9-15.9); WHITE BLOOD COUNT 10.8 10^3/uL (4.0-10.8)
[2022-02-07 17:57] LABS: ACTIVATED PTT 78.9 SECONDS (25.2-36.5)
[2022-02-07 18:04] LABS: PROTHROMBIN TIME (PATIENT) 166.8 SEC (9.7-13.0)
[2022-02-07 18:05] LABS: ALBUMIN 3.2 g/dl (3.4-5.0); BILIRUBIN,TOTAL 2.5 mg/dl (0.2-1); CALCIUM 8.8 mg/dl (8.5-10); CREATININE 1.4 mg/dl (0.55-1.3); INR 14.12 (0.83-1.09); TOT PROT 6.9 g/dl (6.4-8.2)
[2022-02-07 18:17] LABS: ANISOCYTOSIS 1+
[2022-02-07 19:01] LABS: EPITHELIAL CELLS RARE /hpf
[2022-02-07] MEDS ORDERED: CEFTRIAXONE 500 MG in DEXTROSE 5%-WATER - 50 ML IVPB ONE (19:39)
[2022-02-07 20:01] LABS: INR 13.48 (0.83-1.09); PROTHROMBIN TIME (PATIENT) 159.1 SEC (9.7-13.0)
[2022-02-07] MEDS ORDERED: ACETAMINOPHEN 325 MG TABLET (FP) PO PRN (20:10)
[2022-02-07] MEDS ORDERED: POLYETHYLENE GLYCOL (HEALTHYLAX) 3350 17 GM PACKET PO PRN (20:10)
[2022-02-07] MEDS ORDERED: PHYTONADIONE 5 MG TABLET PO ONE (20:16)
[2022-02-07] MEDS ORDERED: SODIUM CHLORIDE 250 ML IV STA (20:17)
[2022-02-07] MEDS ORDERED: PHYTONADIONE 5 MG TABLET ONE (20:18)
[2022-02-07] MEDS ORDERED: CARVEDILOL 25 MG TABLET (FP) PO SCH (22:00)
[2022-02-07 23:07] VITALS: BMI 60.7
[2022-02-07] MEDS: FAMOTIDINE 20 MG TABLET PO SCH (23:16)
[2022-02-07] MEDS: ATORVASTATIN CA 20 MG TABLET (FP) PO SCH (23:16)
[2022-02-08] MEDS ORDERED: metFORMIN HCL 500 MG TABLET (FP) PO SCH ×2 (07:00→16:30)
[2022-02-08] MEDS ORDERED: GLIMEPIRIDE 2 MG TABLET PO SCH (07:00)
[2022-02-08 08:11] LABS: ACTIVATED PTT 62.8 SECONDS (25.2-36.5)
[2022-02-08 08:19] LABS: CALCIUM 8.2 mg/dl (8.5-10); CREATININE 1.3 mg/dl (0.55-1.3); MAGNESIUM 1.9 mg/dL (1.8-2.4); PHOSPHOROUS 2.9 mg/dl (2.5-4.9)
[2022-02-08 08:31] LABS: INR 8.6 (0.83-1.09); PROTHROMBIN TIME (PATIENT) 101.1 SEC (9.7-13.0)
[2022-02-08] MEDS: CARVEDILOL 12.5 MG TABLET (FP) PO SCH ×2 (09:54→21:42)
[2022-02-08] MEDS: DIGOXIN 0.125 MG TABLET PO SCH (09:54)
[2022-02-08] MEDS: TAMSULOSIN HCL 0.4 MG CAP PO SCH (09:55)
[2022-02-08] MEDS: FUROSEMIDE 40 MG/4 ML INJECTABLE VIAL IVPUSH SCH (09:56)
[2022-02-08] MEDS ORDERED: DIGOXIN 0.25 MG TABLET PO SCH (10:00)
[2022-02-08] MEDS ORDERED: PHYTONADIONE 10 MG/1 ML AMP IM ONE (10:00)
[2022-02-08] MEDS ORDERED: LISINOPRIL 20 MG TABLET PO SCH (10:00)
[2022-02-08 10:18] LABS: BASO % 0.4 % (0-2.0); EOS % 0.3 % (0-4.5); HEMATOCRIT 32.2 % (35.4-49); HEMOGLOBIN 10.2 GM/dL (11.7-16.9); LYMPH % 9.8 % (8-40); MCHC 31.6 g/dl (32.0-35.9); MEAN CELL VOLUME 75.9 fl (80-96); MEAN PLT VOLUME 8.3 fl (7.5-11.1); MONO % 11.2 % (3.8-10.2); NEUT % 78.3 % (42.8-82.8); PLATELET COUNT 278 10^3/uL (134-434); RBC 4.24 M/mm3 (4.00-5.60); RDW 18.1 % (11.9-15.9); WHITE BLOOD COUNT 11.1 K/mm3 (4.0-10.0)
[2022-02-08] MEDS: ATORVASTATIN CA 20 MG TABLET (FP) PO SCH (21:42)
[2022-02-08] MEDS: FAMOTIDINE 20 MG TABLET PO SCH (21:42)
[2022-02-09] MEDS ORDERED: CEFTRIAXONE 1 GM in DEXTROSE 5%-WATER - 50 ML IVPB ONE (08:33)
[2022-02-09] MEDS ORDERED: DEXTROSE 5%-WATER - 50 ML IVPB ONE (08:54)
[2022-02-09] MEDS ORDERED: cefTRIAXone SODIUM 1 GM VIAL ONE (08:54)
[2022-02-09] MEDS: TAMSULOSIN HCL 0.4 MG CAP PO SCH (08:58)
[2022-02-09 09:16] LABS: INR 4.96 (0.83-1.09)
[2022-02-09 09:42] LABS: ALBUMIN 2.8 g/dl (3.4-5.0); BILIRUBIN,TOTAL 1.9 mg/dl (0.2-1); CALCIUM 8.3 mg/dl (8.5-10); CREATININE 1.4 mg/dl (0.55-1.3); TOT PROT 6.1 g/dl (6.4-8.2)
[2022-02-09] MEDS: FUROSEMIDE 40 MG/4 ML INJECTABLE VIAL IVPUSH SCH (09:43)
[2022-02-09] MEDS: DIGOXIN 0.125 MG TABLET PO SCH (09:44)
[2022-02-09] MEDS: CARVEDILOL 12.5 MG TABLET (FP) PO SCH ×2 (09:45→21:16)
[2022-02-09 12:09] LABS: HEMATOCRIT 30.5 % (35.4-49); HEMOGLOBIN 9.8 GM/dL (11.7-16.9); MCH 24.4 pg (25.7-33.7); MCHC 32.2 g/dl (32.0-35.9); MEAN CELL VOLUME 75.7 fl (80-96); MEAN PLT VOLUME 8.1 fl (7.5-11.1); PLATELET COUNT 276 10^3/uL (134-434); RBC 4.03 M/mm3 (4.00-5.60); RDW 18.5 % (11.9-15.9); WHITE BLOOD COUNT 10.4 K/mm3 (4.0-10.0)
[2022-02-09] MEDS: FOLIC ACID 1 MG TABLET (FP) PO SCH (18:44)
[2022-02-09] MEDS: THIAMINE HCL 100 MG TABLET (FP) PO SCH (18:44)
[2022-02-09] MEDS: MULTIVITAMINS THER W-MINERALS COMBO TABLET (FP) PO SCH (18:45)
[2022-02-09] MEDS: FAMOTIDINE 20 MG TABLET PO SCH (21:16)
[2022-02-09] MEDS: ATORVASTATIN CA 20 MG TABLET (FP) PO SCH (21:16)
[2022-02-10] MEDS: TAMSULOSIN HCL 0.4 MG CAP PO SCH (08:11)
[2022-02-10] MEDS: THIAMINE HCL 100 MG TABLET (FP) PO SCH (10:20)
[2022-02-10] MEDS: FUROSEMIDE 40 MG/4 ML INJECTABLE VIAL IVPUSH SCH (10:20)
[2022-02-10] MEDS: VALSARTAN 40 MG TABLET PO SCH (10:20)
[2022-02-10] MEDS: DIGOXIN 0.125 MG TABLET PO SCH (10:20)
[2022-02-10] MEDS: FOLIC ACID 1 MG TABLET (FP) PO SCH (10:20)
[2022-02-10] MEDS: MULTIVITAMINS THER W-MINERALS COMBO TABLET (FP) PO SCH (10:20)
[2022-02-10] MEDS: CARVEDILOL 12.5 MG TABLET (FP) PO SCH ×2 (10:20→21:17)
[2022-02-10] MEDS ORDERED: cefTRIAXone SODIUM 1 GM VIAL ONE (18:16)
[2022-02-10] MEDS ORDERED: DEXTROSE 5%-WATER - 50 ML IVPB ONE (18:18)
[2022-02-10] MEDS: CEFTRIAXONE 1 GM in DEXTROSE 5%-WATER - 50 ML IVPB SCH (18:19)
[2022-02-10] MEDS: ATORVASTATIN CA 20 MG TABLET (FP) PO SCH (21:17)
[2022-02-10] MEDS: FAMOTIDINE 20 MG TABLET PO SCH (21:17)
[2022-02-10 21:21] LABS: INR 3.29 (0.83-1.09); PROTHROMBIN TIME (PATIENT) 38.3 SEC (9.7-13.0)
[2022-02-10] MEDS: ALBUTEROL SO4 2.5/IPRATROPIUM 0.5 INH SOL 3 ML VIAL.NEB. NEB PRN (22:03)
[2022-02-11 08:08] LABS: INR 2.92 (0.83-1.09); PROTHROMBIN TIME (PATIENT) 33.9 SEC (9.7-13.0)
[2022-02-11 08:11] LABS: ACTIVATED PTT 37.4 SECONDS (25.2-36.5)
[2022-02-11 08:19] LABS: CALCIUM 8.1 mg/dl (8.5-10); CREATININE 1.1 mg/dl (0.55-1.3)
[2022-02-11] MEDS: TAMSULOSIN HCL 0.4 MG CAP PO SCH (08:22)
[2022-02-11 09:48] LABS: HEMATOCRIT 31.1 % (35.4-49); HEMOGLOBIN 10.1 GM/dL (11.7-16.9); MCH 24.4 pg (25.7-33.7); MCHC 32.6 g/dl (32.0-35.9); MEAN PLT VOLUME 7.8 fl (7.5-11.1); PLATELET COUNT 297 10^3/uL (134-434); RBC 4.15 M/mm3 (4.00-5.60); RDW 18.5 % (11.9-15.9); WHITE BLOOD COUNT 8.3 K/mm3 (4.0-10.0)
[2022-02-11] MEDS: VALSARTAN 40 MG TABLET PO SCH (09:51)
[2022-02-11] MEDS: DIGOXIN 0.125 MG TABLET PO SCH (09:51)
[2022-02-11] MEDS: FUROSEMIDE 40 MG/4 ML INJECTABLE VIAL IVPUSH SCH (09:52)
[2022-02-11] MEDS: CARVEDILOL 12.5 MG TABLET (FP) PO SCH ×2 (09:52→21:37)
[2022-02-11] MEDS: MULTIVITAMINS THER W-MINERALS COMBO TABLET (FP) PO SCH (09:52)
[2022-02-11] MEDS: THIAMINE HCL 100 MG TABLET (FP) PO SCH (09:52)
[2022-02-11] MEDS: FOLIC ACID 1 MG TABLET (FP) PO SCH (09:52)
[2022-02-11] MEDS ORDERED: DEXTROSE 5%-WATER - 50 ML IVPB ONE (10:02)
[2022-02-11] MEDS ORDERED: cefTRIAXone SODIUM 1 GM VIAL ONE (10:02)
[2022-02-11] MEDS: CEFTRIAXONE 1 GM in DEXTROSE 5%-WATER - 50 ML IVPB SCH (10:29)
[2022-02-11] MEDS: ATORVASTATIN CA 20 MG TABLET (FP) PO SCH (21:37)
[2022-02-11] MEDS: ALBUTEROL SO4 2.5/IPRATROPIUM 0.5 INH SOL 3 ML VIAL.NEB. NEB PRN (21:37)
[2022-02-11] MEDS: FAMOTIDINE 20 MG TABLET PO SCH (21:37)
[2022-02-11] MEDS: INSULIN SLIDING SCALE (NOVOLOG) 1 VIAL SQ SCH (21:45)
[2022-02-12 05:55] VITALS: TEMP 98.2
[2022-02-12] MEDS: INSULIN SLIDING SCALE (NOVOLOG) 1 VIAL SQ SCH ×2 (06:42→11:27)
[2022-02-12] MEDS: TAMSULOSIN HCL 0.4 MG CAP PO SCH (07:45)
[2022-02-12 08:42] LABS: INR 2.49 (0.83-1.09); PROTHROMBIN TIME (PATIENT) 28.9 SEC (9.7-13.0)
[2022-02-12 08:54] LABS: ALBUMIN 2.9 g/dl (3.4-5.0); BILIRUBIN,TOTAL 1.9 mg/dl (0.2-1); CALCIUM 8.1 mg/dl (8.5-10); CREATININE 1.1 mg/dl (0.55-1.3); MAGNESIUM 2.1 mg/dL (1.8-2.4); PHOSPHOROUS 2.6 mg/dl (2.5-4.9); TOT PROT 6.4 g/dl (6.4-8.2)
[2022-02-12] MEDS ORDERED: cefTRIAXone SODIUM 1 GM VIAL ONE (09:07)
[2022-02-12] MEDS ORDERED: DEXTROSE 5%-WATER - 50 ML IVPB ONE (09:07)
[2022-02-12 10:09] VITALS: BP 140/64
[2022-02-12] MEDS: FOLIC ACID 1 MG TABLET (FP) PO SCH (10:13)
[2022-02-12] MEDS: DIGOXIN 0.125 MG TABLET PO SCH (10:13)
[2022-02-12] MEDS: THIAMINE HCL 100 MG TABLET (FP) PO SCH (10:13)
[2022-02-12] MEDS: CARVEDILOL 12.5 MG TABLET (FP) PO SCH (10:13)
[2022-02-12] MEDS: CEFTRIAXONE 1 GM in DEXTROSE 5%-WATER - 50 ML IVPB SCH (10:13)
[2022-02-12] MEDS: VALSARTAN 40 MG TABLET PO SCH (10:14)
[2022-02-12] MEDS: MULTIVITAMINS THER W-MINERALS COMBO TABLET (FP) PO SCH (10:14)
[2022-02-12] MEDS: FUROSEMIDE 40 MG/4 ML INJECTABLE VIAL IVPUSH SCH (10:14)
[2022-02-12 10:15] VITALS: PULSE 69
[2022-02-12 11:39] LABS: HEMATOCRIT 33.3 % (35.4-49); HEMOGLOBIN 10.7 GM/dL (11.7-16.9); MCH 24.2 pg (25.7-33.7)
[2022-02-12 11:58] LABS: MEAN CELL VOLUME 75.8 fl (80-96); MEAN PLT VOLUME 7.8 fl (7.5-11.1); PLATELET COUNT 310 10^3/uL (134-434); RBC 4.39 M/mm3 (4.00-5.60); RDW 18.3 % (11.9-15.9); WHITE BLOOD COUNT 8.8 K/mm3 (4.0-10.0)
== END 2022-02-12 13:04 | disposition home or self-care (01) | DRG 291 ==
LOC: FER 16:30 → FM/S 20:16
PROVIDERS: ADMIT Internal Medicine
DX: I13.0 Hypertensive heart and chronic kidney disease with heart failure and stage 1 through stage 4 chronic kidney disease, or unspecified chronic kidney disease (principal); I50.23 Acute on chronic systolic (congestive) heart failure; I48.19 Other persistent atrial fibrillation; N39.0 Urinary tract infection, site not specified; N40.1 Benign prostatic hyperplasia with lower urinary tract symptoms; R79.1 Abnormal coagulation profile; I25.5 Ischemic cardiomyopathy; R33.9 Retention of urine, unspecified; I25.10 Atherosclerotic heart disease of native coronary artery without angina pectoris; Z98.61 Coronary angioplasty status; E78.5 Hyperlipidemia, unspecified; K21.9 Gastro-esophageal reflux disease without esophagitis; N18.9 Chronic kidney disease, unspecified; E11.9 Type 2 diabetes mellitus without complications
CPT/HCPCS: 36415; 70450-TC; 71045-TC-FY; 80048; 80053; 81003; 81015; 82962; 83735; 84100; 84484; 85025; 85027; 85379; 85610; 85730; 87086; 87186; 93005; 93306-TC; 94640; 97116-GP; 99285-25; C9803-CS; U0003; U0005

== ENCOUNTER 2022-04-30 05:40 | Inpatient (IN) | payer OTHER, BC ==
[2022-04-30 07:29] LABS: INR 2.93 (0.83-1.09); PROTHROMBIN TIME (PATIENT) 34.1 SEC (9.7-13.0)
[2022-04-30 07:36] LABS: HEMATOCRIT 36.7 % (35.4-49); HEMOGLOBIN 12.4 G/dL (11.7-16.9); MCH 26.5 pg (25.7-33.7); MCHC 33.7 g/dl (32.0-35.9); MEAN CELL VOLUME 78.6 fl (80-96); MEAN PLT VOLUME 8.7 fl (7.5-11.1); PLATELET COUNT 231.2 10^3/uL (134-434); RBC 4.67 10^6/uL (4.00-5.60); RDW 18.4 % (11.9-15.9); WHITE BLOOD COUNT 10.4 10^3/uL (4.0-10.8)
[2022-04-30 07:38] LABS: ALBUMIN 3.4 g/dl (3.4-5.0); BILIRUBIN,TOTAL 1.4 mg/dl (0.2-1); CALCIUM 8.9 mg/dl (8.5-10); CREATININE 1.1 mg/dl (0.55-1.3); TOT PROT 6.8 g/dl (6.4-8.2)
[2022-04-30 09:08] LABS: EPITHELIAL CELLS FEW /hpf
[2022-04-30 09:17] LABS: PLATELET ESTIMATE ADEQUATE
[2022-04-30] MEDS ORDERED: CEFTRIAXONE 1 GM in DEXTROSE 5%-WATER - 100 ML IVPB ONE (09:27)
[2022-04-30] MEDS ORDERED: cefTRIAXone SODIUM 1 GM VIAL ONE (09:32)
[2022-04-30] MEDS ORDERED: SODIUM CHLORIDE 0.9% 1000 ML INFUS.BAG IV ONE (10:17)
[2022-04-30] MEDS ORDERED: ENOXAPARIN NA (PORCINE) 40 MG/0.4 ML DISP.SYRIN SQ SCH (12:00)
[2022-04-30 12:48] VITALS: BMI 25.4
[2022-04-30 12:58] LABS: MAGNESIUM 1.6 mg/dL (1.8-2.4); PHOSPHOROUS 2.4 mg/dl (2.5-4.9)
[2022-04-30] MEDS: INSULIN (LEVEMIR) 100 UNITS/ML UNITS SQ SCH ×2 (13:45→21:21)
[2022-04-30 17:00] LABS: N-TERMINAL BNP 4907.1 pg/ml (5-450)
[2022-04-30] MEDS: INSULIN SLIDING SCALE (NOVOLOG) 1 VIAL SQ SCH ×2 (17:47→21:13)
[2022-04-30] MEDS: WARFARIN NA 5 MG TABLET PO SCH (18:27)
[2022-04-30] MEDS: PIPERACILLIN/TAZOB 3.375 GM 3.375 GM in DEXTROSE 5%-WATER - 50 ML IVPB SCH (18:27)
[2022-04-30] MEDS: CARVEDILOL 6.25 MG TABLET (FP) PO SCH (21:22)
[2022-05-01] MEDS: PIPERACILLIN/TAZOB 3.375 GM 3.375 GM in DEXTROSE 5%-WATER - 50 ML IVPB SCH ×3 (01:57→17:20)
[2022-05-01] MEDS: INSULIN SLIDING SCALE (NOVOLOG) 1 VIAL SQ SCH ×4 (06:46→21:02)
[2022-05-01 08:20] LABS: ALBUMIN 2.8 g/dl (3.4-5.0); BILIRUBIN,TOTAL 1.4 mg/dl (0.2-1); CALCIUM 8.3 mg/dl (8.5-10); CREATININE 1.1 mg/dl (0.55-1.3); TOT PROT 5.8 g/dl (6.4-8.2)
[2022-05-01 08:21] LABS: HEMATOCRIT 34.6 % (35.4-49); HEMOGLOBIN 11.7 G/dL (11.7-16.9); MCH 26.6 pg (25.7-33.7); MCHC 33.8 g/dl (32.0-35.9); MEAN CELL VOLUME 78.6 fl (80-96); MEAN PLT VOLUME 8.1 fl (7.5-11.1); PLATELET COUNT 156.9 10^3/uL (134-434); RDW 18.5 % (11.9-15.9); WHITE BLOOD COUNT 7.5 10^3/uL (4.0-10.8)
[2022-05-01] MEDS: TAMSULOSIN HCL 0.4 MG CAP PO SCH (08:49)
[2022-05-01] MEDS ORDERED: POTASSIUM CHLORIDE TABS 10 MEQ TABLET.ER (FP) PO ONE (09:00)
[2022-05-01] MEDS: CARVEDILOL 6.25 MG TABLET (FP) PO SCH ×2 (09:51→21:03)
[2022-05-01] MEDS: FAMOTIDINE 20 MG TABLET PO SCH (09:51)
[2022-05-01] MEDS: CLOPIDOGREL BISULFATE 75 MG TABLET (FP) PO SCH (09:51)
[2022-05-01] MEDS: DIGOXIN 0.125 MG TABLET PO SCH (09:51)
[2022-05-01] MEDS: INSULIN (LEVEMIR) 100 UNITS/ML UNITS SQ SCH ×2 (09:51→21:03)
[2022-05-01] MEDS: FINASTERIDE 5 MG TABLET (FP) PO SCH (09:51)
[2022-05-01] MEDS: WARFARIN NA 5 MG TABLET PO SCH ×2 (17:20→17:35)
[2022-05-01] MEDS: ATORVASTATIN CA 40 MG TABLET (FP) PO SCH (21:03)
[2022-05-02] MEDS: PIPERACILLIN/TAZOB 3.375 GM 3.375 GM in DEXTROSE 5%-WATER - 50 ML IVPB SCH ×3 (01:06→17:48)
[2022-05-02] MEDS: INSULIN SLIDING SCALE (NOVOLOG) 1 VIAL SQ SCH ×4 (06:32→21:25)
[2022-05-02] MEDS: TAMSULOSIN HCL 0.4 MG CAP PO SCH (07:45)
[2022-05-02 08:19] LABS: ALBUMIN 2.8 g/dl (3.4-5.0); BILIRUBIN,TOTAL 1.1 mg/dl (0.2-1); CALCIUM 8.5 mg/dl (8.5-10); CREATININE 1.1 mg/dl (0.55-1.3); TOT PROT 5.9 g/dl (6.4-8.2)
[2022-05-02] MEDS: FINASTERIDE 5 MG TABLET (FP) PO SCH (10:01)
[2022-05-02] MEDS: FAMOTIDINE 20 MG TABLET PO SCH (10:01)
[2022-05-02] MEDS: INSULIN (LEVEMIR) 100 UNITS/ML UNITS SQ SCH ×2 (10:01→21:22)
[2022-05-02] MEDS: DIGOXIN 0.125 MG TABLET PO SCH (10:01)
[2022-05-02] MEDS: CARVEDILOL 6.25 MG TABLET (FP) PO SCH ×2 (10:01→21:23)
[2022-05-02] MEDS: CLOPIDOGREL BISULFATE 75 MG TABLET (FP) PO SCH (10:01)
[2022-05-02 11:48] LABS: HEMATOCRIT 36.2 % (35.4-49); HEMOGLOBIN 11.8 GM/dL (11.7-16.9); MCH 25.5 pg (25.7-33.7); MCHC 32.6 g/dl (32.0-35.9); MEAN CELL VOLUME 78.1 fl (80-96); MEAN PLT VOLUME 8.2 fl (7.5-11.1); PLATELET COUNT 178 10^3/uL (134-434); RBC 4.63 M/mm3 (4.00-5.60); RDW 19.3 % (11.9-15.9); WHITE BLOOD COUNT 6.4 K/mm3 (4.0-10.0)
[2022-05-02] MEDS: WARFARIN NA 5 MG TABLET PO SCH (17:48)
[2022-05-02] MEDS ORDERED: FUROSEMIDE 40 MG/4 ML INJECTABLE VIAL IVPUSH ONE (19:18)
[2022-05-02] MEDS ORDERED: LEVALBUTEROL HCL 0.63 MG/3 ML VIAL.NEB. IH ONE (20:07)
[2022-05-02] MEDS ORDERED: dilTIAZem HCL 50 MG/10 ML - 10 ML VIAL ONE (20:11)
[2022-05-02] MEDS: ATORVASTATIN CA 40 MG TABLET (FP) PO SCH (21:23)
[2022-05-03] MEDS: PIPERACILLIN/TAZOB 3.375 GM 3.375 GM in DEXTROSE 5%-WATER - 50 ML IVPB SCH ×3 (02:00→18:54)
[2022-05-03] MEDS: INSULIN SLIDING SCALE (NOVOLOG) 1 VIAL SQ SCH ×4 (06:54→22:10)
[2022-05-03] MEDS: TAMSULOSIN HCL 0.4 MG CAP PO SCH (08:10)
[2022-05-03] MEDS: FUROSEMIDE 40 MG TABLET (FP) PO SCH (09:09)
[2022-05-03] MEDS: DIGOXIN 0.125 MG TABLET PO SCH (09:09)
[2022-05-03] MEDS: SACUBITRIL/VALSARTAN 49 MG-51 MG TABLET PO SCH ×3 (09:10→18:54)
[2022-05-03] MEDS: FINASTERIDE 5 MG TABLET (FP) PO SCH (09:10)
[2022-05-03] MEDS: CARVEDILOL 6.25 MG TABLET (FP) PO SCH ×2 (09:10→22:10)
[2022-05-03] MEDS: FAMOTIDINE 20 MG TABLET PO SCH (09:10)
[2022-05-03] MEDS: CLOPIDOGREL BISULFATE 75 MG TABLET (FP) PO SCH (09:10)
[2022-05-03] MEDS: INSULIN (LEVEMIR) 100 UNITS/ML UNITS SQ SCH ×2 (09:11→22:10)
[2022-05-03] MEDS: WARFARIN NA 5 MG TABLET PO SCH (18:54)
[2022-05-03] MEDS: ATORVASTATIN CA 40 MG TABLET (FP) PO SCH (22:10)
[2022-05-03] MEDS ORDERED: FUROSEMIDE 40 MG/4 ML INJECTABLE VIAL IVPUSH ONE (22:41)
[2022-05-03] MEDS: ACETAMINOPHEN 325 MG TABLET (FP) PO PRN (23:55)
[2022-05-04] MEDS: PIPERACILLIN/TAZOB 3.375 GM 3.375 GM in DEXTROSE 5%-WATER - 50 ML IVPB SCH ×3 (01:23→18:25)
[2022-05-04] MEDS: INSULIN SLIDING SCALE (NOVOLOG) 1 VIAL SQ SCH ×4 (06:54→21:48)
[2022-05-04 08:37] LABS: ALBUMIN 3.2 g/dl (3.4-5.0); BILIRUBIN,TOTAL 1.5 mg/dl (0.2-1); CALCIUM 8.6 mg/dl (8.5-10); CREATININE 1.1 mg/dl (0.55-1.3); MAGNESIUM 1.8 mg/dL (1.8-2.4); TOT PROT 7.2 g/dl (6.4-8.2)
[2022-05-04] MEDS: SACUBITRIL/VALSARTAN 49 MG-51 MG TABLET PO SCH ×3 (09:06→18:25)
[2022-05-04] MEDS: TAMSULOSIN HCL 0.4 MG CAP PO SCH (09:06)
[2022-05-04] MEDS: FUROSEMIDE 40 MG TABLET (FP) PO SCH (09:07)
[2022-05-04] MEDS: CLOPIDOGREL BISULFATE 75 MG TABLET (FP) PO SCH (09:07)
[2022-05-04] MEDS: FAMOTIDINE 20 MG TABLET PO SCH (09:07)
[2022-05-04] MEDS: FINASTERIDE 5 MG TABLET (FP) PO SCH (09:07)
[2022-05-04] MEDS: DIGOXIN 0.125 MG TABLET PO SCH (09:08)
[2022-05-04] MEDS: CARVEDILOL 6.25 MG TABLET (FP) PO SCH ×2 (09:08→21:48)
[2022-05-04] MEDS: INSULIN (LEVEMIR) 100 UNITS/ML UNITS SQ SCH ×2 (09:09→21:48)
[2022-05-04 10:57] LABS: BASO % 0.5 % (0-2.0); EOS % 0.1 % (0-4.5); HEMOGLOBIN 13.7 GM/dL (11.7-16.9); MCH 24.9 pg (25.7-33.7); MCHC 31.8 g/dl (32.0-35.9); MEAN CELL VOLUME 78.2 fl (80-96); MEAN PLT VOLUME 8.7 fl (7.5-11.1); MONO % 7.6 % (3.8-10.2); NEUT % 83.8 % (42.8-82.8); PLATELET COUNT 216 10^3/uL (134-434); WHITE BLOOD COUNT 7.7 K/mm3 (4.0-10.0)
[2022-05-04] MEDS ORDERED: FUROSEMIDE 40 MG/4 ML INJECTABLE VIAL IVPUSH ONE (12:19)
[2022-05-04] MEDS: HALOPERIDOL LACTATE 5 MG/ML IM PRN (12:26)
[2022-05-04] MEDS ORDERED: IPRATROPIUM BR 0.02% 0.5 MG/2.5 ML VIAL.NEB. NEB ONE (12:33)
[2022-05-04] MEDS ORDERED: LORazepam 2 MG/ML SDV VIAL IVPUSH PRN (14:09)
[2022-05-04] MEDS ORDERED: NITROGLYCERIN SUBLINGUAL 1/150 0.4 MG TAB SL ONE (14:29)
[2022-05-04] MEDS ORDERED: ACETAMINOPHEN 1000 MG/100 ML BAG IVPB ONE (14:38)
[2022-05-04 15:57] LABS: ARTERIAL BLD GAS O2 SATURATION 96.4 % (95-98); ARTERIAL BLOOD GAS BASE EXCESS 2.7 mmol/L (-2-2); ARTERIAL BLOOD GAS pH 7.414 (7.350-7.450)
[2022-05-04] MEDS: FUROSEMIDE 40 MG/4 ML INJECTABLE VIAL IVPUSH SCH (17:22)
[2022-05-04] MEDS: WARFARIN NA 5 MG TABLET PO SCH (18:25)
[2022-05-04] MEDS ORDERED: VANCOMYCIN 1 GRAM (PRE-DOCKED) 1,000 MG/250 ML BAG IVPB ONE (19:10)
[2022-05-04] MEDS: ATORVASTATIN CA 40 MG TABLET (FP) PO SCH (21:48)
[2022-05-04] MEDS ORDERED: FUROSEMIDE 40 MG TABLET (FP) PO SCH (22:00)
[2022-05-04 22:30] LABS: INR 2.63 (0.83-1.09); PROTHROMBIN TIME (PATIENT) 30.6 SEC (9.7-13.0)
[2022-05-05] MEDS: PIPERACILLIN/TAZOB 3.375 GM 3.375 GM in DEXTROSE 5%-WATER - 50 ML IVPB SCH ×3 (02:42→18:17)
[2022-05-05] MEDS: FUROSEMIDE 40 MG/4 ML INJECTABLE VIAL IVPUSH SCH ×2 (05:42→14:06)
[2022-05-05] MEDS: INSULIN SLIDING SCALE (NOVOLOG) 1 VIAL SQ SCH ×4 (06:57→21:48)
[2022-05-05 07:40] LABS: BASO % 0.3 % (0-2.0); EOS % 1.2 % (0-4.5); HEMATOCRIT 40.2 % (35.4-49); LYMPH % 12.7 % (8-40); MCH 25.3 pg (25.7-33.7); MCHC 32.4 g/dl (32.0-35.9); MEAN CELL VOLUME 77.9 fl (80-96); MEAN PLT VOLUME 7.9 fl (7.5-11.1); MONO % 8.6 % (3.8-10.2); NEUT % 77.2 % (42.8-82.8); PLATELET COUNT 176 10^3/uL (134-434); RBC 5.16 M/mm3 (4.00-5.60); RDW 19.3 % (11.9-15.9); WHITE BLOOD COUNT 7.8 K/mm3 (4.0-10.0)
[2022-05-05] MEDS: HALOPERIDOL LACTATE 5 MG/ML IM PRN (07:46)
[2022-05-05 08:08] LABS: CALCIUM 8.2 mg/dL (8.5-10.1)
[2022-05-05 08:09] LABS: ALBUMIN 2.6 g/dl (3.4-5.0); BLOOD UREA NITROGEN 29.9 mg/dL (7-18); MAGNESIUM 1.8 mg/dL (1.8-2.4)
[2022-05-05 08:12] LABS: CREATININE 1.2 mg/dL (0.55-1.3)
[2022-05-05 08:14] LABS: BILIRUBIN,TOTAL 0.9 mg/dL (0.2-1); TOT PROT 6.2 g/dl (6.4-8.2)
[2022-05-05] MEDS: CLOPIDOGREL BISULFATE 75 MG TABLET (FP) PO SCH (10:01)
[2022-05-05] MEDS: CARVEDILOL 6.25 MG TABLET (FP) PO SCH ×2 (10:02→21:44)
[2022-05-05] MEDS: INSULIN (LEVEMIR) 100 UNITS/ML UNITS SQ SCH ×2 (10:02→21:48)
[2022-05-05] MEDS: TAMSULOSIN HCL 0.4 MG CAP PO SCH (10:02)
[2022-05-05] MEDS: FINASTERIDE 5 MG TABLET (FP) PO SCH (10:02)
[2022-05-05] MEDS: FAMOTIDINE 20 MG TABLET PO SCH (10:02)
[2022-05-05] MEDS: SACUBITRIL/VALSARTAN 49 MG-51 MG TABLET PO SCH ×3 (10:49→21:44)
[2022-05-05] MEDS: DIGOXIN 0.125 MG TABLET PO SCH (10:49)
[2022-05-05] MEDS: ALBUTEROL SO4 2.5/IPRATROPIUM 0.5 INH SOL 3 ML VIAL.NEB. NEB PRN (13:50)
[2022-05-05] MEDS ORDERED: HALOPERIDOL LACTATE 5 MG/ML IM PRN (14:17)
[2022-05-05] MEDS ORDERED: MELATONIN 5 MG TABLETS PO ONE (20:26)
[2022-05-05] MEDS: ATORVASTATIN CA 40 MG TABLET (FP) PO SCH (21:43)
[2022-05-06] MEDS: PIPERACILLIN/TAZOB 3.375 GM 3.375 GM in DEXTROSE 5%-WATER - 50 ML IVPB SCH ×3 (01:08→17:33)
[2022-05-06] MEDS: INSULIN SLIDING SCALE (NOVOLOG) 1 VIAL SQ SCH ×4 (06:55→21:56)
[2022-05-06] MEDS: FUROSEMIDE 40 MG/4 ML INJECTABLE VIAL IVPUSH SCH ×2 (06:55→14:54)
[2022-05-06 08:11] LABS: BASO % 0.5 % (0-2.0); EOS % 4.2 % (0-4.5); HEMOGLOBIN 13.1 GM/dL (11.7-16.9); LYMPH % 13.8 % (8-40); MCH 25.3 pg (25.7-33.7); MCHC 32.7 g/dl (32.0-35.9); MEAN CELL VOLUME 77.3 fl (80-96); MEAN PLT VOLUME 8.2 fl (7.5-11.1); MONO % 10.2 % (3.8-10.2); NEUT % 71.3 % (42.8-82.8); PLATELET COUNT 183 10^3/uL (134-434); RBC 5.18 M/mm3 (4.00-5.60); RDW 19.3 % (11.9-15.9); WHITE BLOOD COUNT 8.5 K/mm3 (4.0-10.0)
[2022-05-06 08:36] LABS: CALCIUM 8.4 mg/dL (8.5-10.1)
[2022-05-06 08:38] LABS: ALBUMIN 2.5 g/dl (3.4-5.0); BLOOD UREA NITROGEN 32.7 mg/dL (7-18)
[2022-05-06 08:40] LABS: CREATININE 1.2 mg/dL (0.55-1.3)
[2022-05-06 08:41] LABS: BILIRUBIN,TOTAL 0.9 mg/dL (0.2-1)
[2022-05-06] MEDS ORDERED: POTASSIUM CHLORIDE ORAL LIQUID 20 MEQ/15 ML PO ONE (09:37)
[2022-05-06] MEDS: INSULIN (LEVEMIR) 100 UNITS/ML UNITS SQ SCH ×2 (09:47→21:55)
[2022-05-06] MEDS: CLOPIDOGREL BISULFATE 75 MG TABLET (FP) PO SCH (09:48)
[2022-05-06] MEDS: TAMSULOSIN HCL 0.4 MG CAP PO SCH (09:48)
[2022-05-06] MEDS: FINASTERIDE 5 MG TABLET (FP) PO SCH (09:48)
[2022-05-06] MEDS: CARVEDILOL 6.25 MG TABLET (FP) PO SCH ×2 (09:48→21:55)
[2022-05-06] MEDS: FAMOTIDINE 20 MG TABLET PO SCH (09:48)
[2022-05-06] MEDS: SACUBITRIL/VALSARTAN 49 MG-51 MG TABLET PO SCH ×2 (09:53→21:55)
[2022-05-06] MEDS ORDERED: DIGOXIN 0.25 MG TABLET PO SCH (12:22)
[2022-05-06] MEDS: DIGOXIN 0.25 MG TABLET PO SCH (14:01)
[2022-05-06] MEDS: DIGOXIN 0.125 MG TABLET PO SCH (14:16)
[2022-05-06] MEDS: ALBUTEROL SO4 2.5/IPRATROPIUM 0.5 INH SOL 3 ML VIAL.NEB. NEB PRN (21:00)
[2022-05-06] MEDS: MELATONIN 5 MG TABLETS PO SCH (21:55)
[2022-05-06] MEDS: ATORVASTATIN CA 40 MG TABLET (FP) PO SCH (21:55)
[2022-05-07] MEDS: PIPERACILLIN/TAZOB 3.375 GM 3.375 GM in DEXTROSE 5%-WATER - 50 ML IVPB SCH ×2 (03:35→09:15)
[2022-05-07] MEDS: FUROSEMIDE 40 MG/4 ML INJECTABLE VIAL IVPUSH SCH ×2 (06:10→13:10)
[2022-05-07] MEDS: INSULIN SLIDING SCALE (NOVOLOG) 1 VIAL SQ SCH ×4 (06:36→21:47)
[2022-05-07 07:58] LABS: HEMATOCRIT 40.2 % (35.4-49); HEMOGLOBIN 12.8 GM/dL (11.7-16.9); MCH 24.7 pg (25.7-33.7); MCHC 31.9 g/dl (32.0-35.9); MEAN CELL VOLUME 77.4 fl (80-96); MEAN PLT VOLUME 8.4 fl (7.5-11.1); PLATELET COUNT 208 10^3/uL (134-434); RBC 5.19 M/mm3 (4.00-5.60); RDW 19.2 % (11.9-15.9); WHITE BLOOD COUNT 8.5 K/mm3 (4.0-10.0)
[2022-05-07 08:22] LABS: ALBUMIN 2.5 g/dl (3.4-5.0); CALCIUM 8.2 mg/dL (8.5-10.1)
[2022-05-07 08:26] LABS: CREATININE 1.2 mg/dL (0.55-1.3); PHOSPHOROUS 2.9 mg/dL (2.5-4.9)
[2022-05-07 08:27] LABS: BILIRUBIN,TOTAL 0.9 mg/dL (0.2-1)
[2022-05-07] MEDS: FINASTERIDE 5 MG TABLET (FP) PO SCH (09:14)
[2022-05-07] MEDS: TAMSULOSIN HCL 0.4 MG CAP PO SCH (09:14)
[2022-05-07] MEDS: FAMOTIDINE 20 MG TABLET PO SCH (09:14)
[2022-05-07] MEDS: SACUBITRIL/VALSARTAN 49 MG-51 MG TABLET PO SCH ×2 (09:15→21:45)
[2022-05-07] MEDS: CLOPIDOGREL BISULFATE 75 MG TABLET (FP) PO SCH (09:15)
[2022-05-07] MEDS: CARVEDILOL 6.25 MG TABLET (FP) PO SCH ×2 (09:15→21:45)
[2022-05-07] MEDS: DIGOXIN 0.25 MG TABLET PO SCH (09:16)
[2022-05-07] MEDS: INSULIN (LEVEMIR) 100 UNITS/ML UNITS SQ SCH ×2 (10:25→21:47)
[2022-05-07] MEDS: MELATONIN 5 MG TABLETS PO SCH (21:45)
[2022-05-07] MEDS: ATORVASTATIN CA 40 MG TABLET (FP) PO SCH (21:45)
[2022-05-08] MEDS: INSULIN SLIDING SCALE (NOVOLOG) 1 VIAL SQ SCH ×4 (06:37→21:11)
[2022-05-08] MEDS: FUROSEMIDE 40 MG/4 ML INJECTABLE VIAL IVPUSH SCH ×2 (06:37→14:46)
[2022-05-08 07:36] LABS: ALBUMIN 2.5 g/dl (3.4-5.0); BLOOD UREA NITROGEN 27.1 mg/dL (7-18); CALCIUM 8.4 mg/dL (8.5-10.1)
[2022-05-08 07:39] LABS: PHOSPHOROUS 3.2 mg/dL (2.5-4.9)
[2022-05-08 07:40] LABS: BILIRUBIN,TOTAL 1.1 mg/dL (0.2-1); TOT PROT 6.4 g/dl (6.4-8.2)
[2022-05-08 08:19] LABS: HEMATOCRIT 41.1 % (35.4-49); HEMOGLOBIN 12.9 GM/dL (11.7-16.9); MCH 24.3 pg (25.7-33.7); MCHC 31.4 g/dl (32.0-35.9); MEAN CELL VOLUME 77.4 fl (80-96); MEAN PLT VOLUME 8.4 fl (7.5-11.1); PLATELET COUNT 225 10^3/uL (134-434); RDW 18.8 % (11.9-15.9); WHITE BLOOD COUNT 7.6 K/mm3 (4.0-10.0)
[2022-05-08] MEDS ORDERED: POTASSIUM CHLORIDE ORAL LIQUID 20 MEQ/15 ML PO ONE (08:24)
[2022-05-08] MEDS ORDERED: MAGNESIUM SULF 50% (8.12 MEQ/2 ML-1 GM VIAL) IVPB ONE (08:24)
[2022-05-08] MEDS: KCL 10 MEQ IVPB 10 MEQ/100 ML INFUS.BAG IVPB SCH ×3 (08:57→11:56)
[2022-05-08] MEDS: TAMSULOSIN HCL 0.4 MG CAP PO SCH (09:14)
[2022-05-08] MEDS: CARVEDILOL 6.25 MG TABLET (FP) PO SCH ×2 (09:15→21:15)
[2022-05-08] MEDS: SACUBITRIL/VALSARTAN 49 MG-51 MG TABLET PO SCH ×2 (09:15→21:15)
[2022-05-08] MEDS: FAMOTIDINE 20 MG TABLET PO SCH (09:16)
[2022-05-08] MEDS: FINASTERIDE 5 MG TABLET (FP) PO SCH (09:16)
[2022-05-08] MEDS: CLOPIDOGREL BISULFATE 75 MG TABLET (FP) PO SCH (09:16)
[2022-05-08] MEDS: DIGOXIN 0.25 MG TABLET PO SCH (09:32)
[2022-05-08] MEDS: INSULIN (LEVEMIR) 100 UNITS/ML UNITS SQ SCH ×2 (10:27→21:09)
[2022-05-08] MEDS: MELATONIN 5 MG TABLETS PO SCH (21:03)
[2022-05-08] MEDS: ATORVASTATIN CA 40 MG TABLET (FP) PO SCH (21:04)
[2022-05-09] MEDS: FUROSEMIDE 40 MG/4 ML INJECTABLE VIAL IVPUSH SCH (06:23)
[2022-05-09] MEDS: INSULIN SLIDING SCALE (NOVOLOG) 1 VIAL SQ SCH ×4 (06:23→22:31)
[2022-05-09 07:19] LABS: HEMATOCRIT 40.9 % (35.4-49); MCH 24.6 pg (25.7-33.7); MCHC 31.8 g/dl (32.0-35.9); MEAN CELL VOLUME 77.3 fl (80-96); MEAN PLT VOLUME 8.4 fl (7.5-11.1); PLATELET COUNT 240 10^3/uL (134-434); RDW 18.6 % (11.9-15.9); WHITE BLOOD COUNT 8.7 K/mm3 (4.0-10.0)
[2022-05-09 07:33] LABS: CALCIUM 8.5 mg/dL (8.5-10.1)
[2022-05-09 07:34] LABS: ALBUMIN 2.6 g/dl (3.4-5.0); BLOOD UREA NITROGEN 22.4 mg/dL (7-18); MAGNESIUM 2.4 mg/dL (1.8-2.4)
[2022-05-09 07:37] LABS: BILIRUBIN,TOTAL 1.1 mg/dL (0.2-1); CREATININE 0.9 mg/dL (0.55-1.3); PHOSPHOROUS 3.5 mg/dL (2.5-4.9); TOT PROT 6.5 g/dl (6.4-8.2)
[2022-05-09] MEDS: FAMOTIDINE 20 MG TABLET PO SCH (09:32)
[2022-05-09] MEDS: DIGOXIN 0.25 MG TABLET PO SCH (09:32)
[2022-05-09] MEDS: CARVEDILOL 6.25 MG TABLET (FP) PO SCH ×2 (09:32→22:30)
[2022-05-09] MEDS: CLOPIDOGREL BISULFATE 75 MG TABLET (FP) PO SCH (09:32)
[2022-05-09] MEDS: TAMSULOSIN HCL 0.4 MG CAP PO SCH (09:32)
[2022-05-09] MEDS: FINASTERIDE 5 MG TABLET (FP) PO SCH (09:32)
[2022-05-09] MEDS: SACUBITRIL/VALSARTAN 49 MG-51 MG TABLET PO SCH ×2 (09:32→22:31)
[2022-05-09] MEDS: INSULIN (LEVEMIR) 100 UNITS/ML UNITS SQ SCH ×2 (11:24→22:31)
[2022-05-09] MEDS ORDERED: POTASSIUM CHLORIDE TABS 20 MEQ TABLET.ER (FP) PO ONE (12:34)
[2022-05-09] MEDS ORDERED: ENOXAPARIN NA (PORCINE) 40 MG/0.4 ML DISP.SYRIN SQ SCH (12:45)
[2022-05-09] MEDS: MELATONIN 5 MG TABLETS PO SCH (22:31)
[2022-05-09] MEDS: ATORVASTATIN CA 40 MG TABLET (FP) PO SCH (22:31)
[2022-05-10] MEDS: INSULIN SLIDING SCALE (NOVOLOG) 1 VIAL SQ SCH ×4 (07:14→22:38)
[2022-05-10 07:36] LABS: HEMATOCRIT 40.6 % (35.4-49); MCH 24.6 pg (25.7-33.7); MCHC 32.1 g/dl (32.0-35.9); MEAN CELL VOLUME 76.6 fl (80-96); MEAN PLT VOLUME 8.5 fl (7.5-11.1); PLATELET COUNT 238 10^3/uL (134-434); RBC 5.31 M/mm3 (4.00-5.60); RDW 18.6 % (11.9-15.9); WHITE BLOOD COUNT 7.7 K/mm3 (4.0-10.0)
[2022-05-10 08:06] LABS: CALCIUM 8.1 mg/dL (8.5-10.1)
[2022-05-10 08:10] LABS: CREATININE 0.9 mg/dL (0.55-1.3)
[2022-05-10] MEDS: DIGOXIN 0.25 MG TABLET PO SCH (09:41)
[2022-05-10] MEDS: RIVAROXABAN 15 MG TABLET PO SCH (09:41)
[2022-05-10] MEDS: FINASTERIDE 5 MG TABLET (FP) PO SCH (09:41)
[2022-05-10] MEDS: FAMOTIDINE 20 MG TABLET PO SCH (09:41)
[2022-05-10] MEDS: FUROSEMIDE 40 MG TABLET (FP) PO SCH (09:41)
[2022-05-10] MEDS: CLOPIDOGREL BISULFATE 75 MG TABLET (FP) PO SCH (09:41)
[2022-05-10] MEDS: CARVEDILOL 6.25 MG TABLET (FP) PO SCH ×2 (09:41→22:17)
[2022-05-10] MEDS: TAMSULOSIN HCL 0.4 MG CAP PO SCH (09:41)
[2022-05-10] MEDS: SACUBITRIL/VALSARTAN 49 MG-51 MG TABLET PO SCH ×2 (09:42→22:17)
[2022-05-10] MEDS: INSULIN (LEVEMIR) 100 UNITS/ML UNITS SQ SCH ×2 (11:41→22:38)
[2022-05-10] MEDS: ATORVASTATIN CA 40 MG TABLET (FP) PO SCH (22:17)
[2022-05-10] MEDS: MELATONIN 5 MG TABLETS PO SCH (22:17)
[2022-05-11] MEDS: INSULIN SLIDING SCALE (NOVOLOG) 1 VIAL SQ SCH ×4 (06:26→21:05)
[2022-05-11] MEDS: SACUBITRIL/VALSARTAN 49 MG-51 MG TABLET PO SCH ×2 (09:20→21:06)
[2022-05-11] MEDS: TAMSULOSIN HCL 0.4 MG CAP PO SCH (09:21)
[2022-05-11] MEDS: DIGOXIN 0.25 MG TABLET PO SCH (09:21)
[2022-05-11] MEDS: CARVEDILOL 6.25 MG TABLET (FP) PO SCH ×2 (09:21→21:03)
[2022-05-11] MEDS: FUROSEMIDE 40 MG TABLET (FP) PO SCH (09:21)
[2022-05-11] MEDS: CLOPIDOGREL BISULFATE 75 MG TABLET (FP) PO SCH (09:21)
[2022-05-11] MEDS: RIVAROXABAN 15 MG TABLET PO SCH (09:21)
[2022-05-11] MEDS: FAMOTIDINE 20 MG TABLET PO SCH (09:21)
[2022-05-11] MEDS: FINASTERIDE 5 MG TABLET (FP) PO SCH (09:21)
[2022-05-11] MEDS: INSULIN (LEVEMIR) 100 UNITS/ML UNITS SQ SCH ×2 (11:28→21:03)
[2022-05-11] MEDS: ATORVASTATIN CA 40 MG TABLET (FP) PO SCH (21:03)
[2022-05-11] MEDS: MELATONIN 5 MG TABLETS PO SCH (21:04)
[2022-05-12] MEDS: INSULIN SLIDING SCALE (NOVOLOG) 1 VIAL SQ SCH ×4 (06:17→21:05)
[2022-05-12 07:54] LABS: BASO % 0.7 % (0-2.0); EOS % 4.3 % (0-4.5); HEMATOCRIT 40.8 % (35.4-49); HEMOGLOBIN 13.1 GM/dL (11.7-16.9); MCH 24.8 pg (25.7-33.7); MCHC 32.2 g/dl (32.0-35.9); MEAN CELL VOLUME 77.2 fl (80-96); MEAN PLT VOLUME 8.4 fl (7.5-11.1); MONO % 8.3 % (3.8-10.2); NEUT % 67.7 % (42.8-82.8); PLATELET COUNT 260 10^3/uL (134-434); RBC 5.29 M/mm3 (4.00-5.60); RDW 18.7 % (11.9-15.9)
[2022-05-12 08:16] LABS: CALCIUM 8.8 mg/dL (8.5-10.1)
[2022-05-12 08:20] LABS: CREATININE 0.9 mg/dL (0.55-1.3); PHOSPHOROUS 3.6 mg/dL (2.5-4.9)
[2022-05-12] MEDS: TAMSULOSIN HCL 0.4 MG CAP PO SCH (08:33)
[2022-05-12] MEDS: CARVEDILOL 6.25 MG TABLET (FP) PO SCH ×2 (09:04→21:03)
[2022-05-12] MEDS: FUROSEMIDE 40 MG TABLET (FP) PO SCH ×2 (09:04→16:12)
[2022-05-12] MEDS: SACUBITRIL/VALSARTAN 49 MG-51 MG TABLET PO SCH ×2 (09:04→21:38)
[2022-05-12] MEDS: DIGOXIN 0.25 MG TABLET PO SCH (09:04)
[2022-05-12] MEDS: FAMOTIDINE 20 MG TABLET PO SCH (09:05)
[2022-05-12] MEDS: CLOPIDOGREL BISULFATE 75 MG TABLET (FP) PO SCH (09:05)
[2022-05-12] MEDS: FINASTERIDE 5 MG TABLET (FP) PO SCH (09:05)
[2022-05-12] MEDS: INSULIN (LEVEMIR) 100 UNITS/ML UNITS SQ SCH ×2 (09:05→21:03)
[2022-05-12] MEDS: RIVAROXABAN 15 MG TABLET PO SCH (09:05)
[2022-05-12] MEDS: MELATONIN 5 MG TABLETS PO SCH (21:03)
[2022-05-12] MEDS: ATORVASTATIN CA 40 MG TABLET (FP) PO SCH (21:03)
[2022-05-13] MEDS: FUROSEMIDE 40 MG TABLET (FP) PO SCH ×2 (06:22→16:09)
[2022-05-13] MEDS: INSULIN SLIDING SCALE (NOVOLOG) 1 VIAL SQ SCH ×4 (06:32→21:15)
[2022-05-13] MEDS: CLOPIDOGREL BISULFATE 75 MG TABLET (FP) PO SCH (10:23)
[2022-05-13] MEDS: RIVAROXABAN 15 MG TABLET PO SCH (10:23)
[2022-05-13] MEDS: FINASTERIDE 5 MG TABLET (FP) PO SCH (10:23)
[2022-05-13] MEDS: FAMOTIDINE 20 MG TABLET PO SCH (10:24)
[2022-05-13] MEDS: TAMSULOSIN HCL 0.4 MG CAP PO SCH (10:24)
[2022-05-13] MEDS: CARVEDILOL 6.25 MG TABLET (FP) PO SCH ×2 (10:24→21:09)
[2022-05-13] MEDS: SACUBITRIL/VALSARTAN 49 MG-51 MG TABLET PO SCH ×2 (10:25→21:09)
[2022-05-13] MEDS: DIGOXIN 0.25 MG TABLET PO SCH (10:25)
[2022-05-13] MEDS: INSULIN (LEVEMIR) 100 UNITS/ML UNITS SQ SCH ×2 (11:25→21:14)
[2022-05-13] MEDS: ACETAMINOPHEN 325 MG TABLET (FP) PO PRN (21:09)
[2022-05-13] MEDS: ATORVASTATIN CA 40 MG TABLET (FP) PO SCH (21:09)
[2022-05-13] MEDS: MELATONIN 5 MG TABLETS PO SCH (21:10)
[2022-05-14 06:05] VITALS: RESP 17
[2022-05-14] MEDS: FUROSEMIDE 40 MG TABLET (FP) PO SCH ×2 (06:38→16:26)
[2022-05-14] MEDS: INSULIN SLIDING SCALE (NOVOLOG) 1 VIAL SQ SCH ×3 (06:38→17:04)
[2022-05-14 08:07] LABS: CALCIUM 8.6 mg/dL (8.5-10.1)
[2022-05-14 08:08] LABS: ALBUMIN 2.6 g/dl (3.4-5.0)
[2022-05-14 08:11] LABS: PHOSPHOROUS 3.2 mg/dL (2.5-4.9)
[2022-05-14 08:12] LABS: BILIRUBIN,TOTAL 0.8 mg/dL (0.2-1)
[2022-05-14] MEDS: CARVEDILOL 6.25 MG TABLET (FP) PO SCH (09:36)
[2022-05-14] MEDS: INSULIN (LEVEMIR) 100 UNITS/ML UNITS SQ SCH (09:36)
[2022-05-14] MEDS: FINASTERIDE 5 MG TABLET (FP) PO SCH (09:36)
[2022-05-14] MEDS: TAMSULOSIN HCL 0.4 MG CAP PO SCH (09:36)
[2022-05-14] MEDS: FAMOTIDINE 20 MG TABLET PO SCH (09:36)
[2022-05-14] MEDS: CLOPIDOGREL BISULFATE 75 MG TABLET (FP) PO SCH (09:36)
[2022-05-14] MEDS: SACUBITRIL/VALSARTAN 49 MG-51 MG TABLET PO SCH (09:37)
[2022-05-14] MEDS: DIGOXIN 0.25 MG TABLET PO SCH (09:37)
[2022-05-14 13:36] VITALS: PULSE 60; TEMP 98.1
[2022-05-14 14:06] VITALS: BP 121/47
[2022-05-14] MEDS ORDERED: RIVAROXABAN 15 MG TABLET PO SCH (18:00)
== END 2022-05-14 17:45 | DRG 871 ==
LOC: FER 05:40 → FM/S 10:30 → J2W 05-04 21:33
DX: A41.59 Other Gram-negative sepsis (principal); I21.4 Non-ST elevation (NSTEMI) myocardial infarction; I50.23 Acute on chronic systolic (congestive) heart failure; N39.0 Urinary tract infection, site not specified; I13.0 Hypertensive heart and chronic kidney disease with heart failure and stage 1 through stage 4 chronic kidney disease, or unspecified chronic kidney disease; E87.3 Alkalosis; I48.91 Unspecified atrial fibrillation; E11.9 Type 2 diabetes mellitus without complications; E78.5 Hyperlipidemia, unspecified; F03.90 Unspecified dementia, unspecified severity, without behavioral disturbance, psychotic disturbance, mood disturbance, and anxiety; Z86.73 Personal history of transient ischemic attack (TIA), and cerebral infarction without residual deficits; N40.1 Benign prostatic hyperplasia with lower urinary tract symptoms; R33.8 Other retention of urine; I25.10 Atherosclerotic heart disease of native coronary artery without angina pectoris; N18.9 Chronic kidney disease, unspecified; Z87.19 Personal history of other diseases of the digestive system; R91.8 Other nonspecific abnormal finding of lung field; E87.6 Hypokalemia; Z95.5 Presence of coronary angioplasty implant and graft; B96.1 Klebsiella pneumoniae [K. pneumoniae] as the cause of diseases classified elsewhere; D72.829 Elevated white blood cell count, unspecified; K21.9 Gastro-esophageal reflux disease without esophagitis
CPT/HCPCS: 0241U-QW; 36415; 36600; 70450-TC; 71045-TC-FY; 76856-TC; 80048; 80053; 80061; 80162; 81003; 81015; 82550; 82553; 82803; 82962; 83036; 83735; 83880; 84100; 84132; 84443; 84484; 85025; 85027; 85610; 87040; 87086; 87186; 93005; 94640; 94660; 94761; 97116-GP; 97162-GP; 99285-25; C9803-CS; U0003; U0005

== ENCOUNTER 2022-07-31 16:56 | Emergency (ER) | payer OTHER, BC ==
[2022-07-31 17:16] VITALS: BP 110/50; PULSE 98; RESP 18; TEMP 99.2; BMI 27.2
== END 2022-07-31 18:21 | disposition home or self-care (01) ==
LOC: FER 16:56
DX: R26.89 Other abnormalities of gait and mobility (principal); W19.XXXA Unspecified fall, initial encounter
CPT/HCPCS: 93005; 99283-25

== ENCOUNTER 2023-01-04 17:10 | Inpatient (IN) | payer OTHER, BC ==
[2023-01-04] MEDS ORDERED: CEFTRIAXONE 1 GM in DEXTROSE 5%-WATER - 100 ML IVPB ONE (18:06)
[2023-01-04 18:19] LABS: EPITHELIAL CELLS rare /hpf
[2023-01-04 18:22] LABS: HEMATOCRIT 32.1 % (35.4-49); HEMOGLOBIN 10.2 G/dL (11.7-16.9); MCHC 31.9 g/dl (32.0-35.9); MEAN CELL VOLUME 78.4 fl (80-96); MEAN PLT VOLUME 9.2 fl (7.5-11.1); PLATELET COUNT 209.7 10^3/uL (134-434); RBC 4.09 10^6/uL (4.00-5.60); RDW 18.3 % (11.9-15.9); WHITE BLOOD COUNT 8.2 10^3/uL (4.0-10.8)
[2023-01-04] MEDS ORDERED: cefTRIAXone SODIUM 1 GM VIAL ONE (18:32)
[2023-01-04 18:39] LABS: ALBUMIN 3.3 g/dl (3.4-5.0); BILIRUBIN,TOTAL 1.4 mg/dl (0.2-1); CALCIUM 8.3 mg/dl (8.5-10); CREATININE 1.3 mg/dl (0.55-1.3); POTASSIUM 4.1 mmol/L (3.5-5.1); TOT PROT 6.6 g/dl (6.4-8.2)
[2023-01-04] MEDS: TAMSULOSIN HCL 0.4 MG CAP PO SCH (22:11)
[2023-01-05] MEDS ORDERED: ACETAMINOPHEN 325 MG TABLET (FP) PO PRN (01:17)
[2023-01-05] MEDS ORDERED: FLUCONAZOLE 100 MG TABLET (UD) PO ONE (02:30)
[2023-01-05 08:59] LABS: BASO % 0.8 % (0-2.0); EOS % 3.1 % (0-4.5); HEMATOCRIT 32.8 % (35.4-49); HEMOGLOBIN 10.6 GM/dL (11.7-16.9); MCH 24.1 pg (25.7-33.7); MCHC 32.3 g/dl (32.0-35.9); MEAN CELL VOLUME 74.8 fl (80-96); MEAN PLT VOLUME 7.9 fl (7.5-11.1); MONO % 8.1 % (3.8-10.2); PLATELET COUNT 235 10^3/uL (134-434); RBC 4.38 M/mm3 (4.00-5.60); WHITE BLOOD COUNT 7.7 K/mm3 (4.0-10.0)
[2023-01-05 09:12] LABS: ACTIVATED PTT 36.2 SECONDS (25.2-36.5); INR 1.75 (0.83-1.09); PROTHROMBIN TIME (PATIENT) 20.2 SEC (9.7-13.0)
[2023-01-05 09:29] LABS: CALCIUM 8.8 mg/dl (8.5-10); CREATININE 1.2 mg/dl (0.55-1.3); PHOSPHOROUS 2.9 mg/dl (2.5-4.9); POTASSIUM 3.9 mmol/L (3.5-5.1)
[2023-01-05] MEDS: FUROSEMIDE 40 MG TABLET (FP) PO SCH (09:56)
[2023-01-05] MEDS: RIVAROXABAN 15 MG TABLET PO SCH (09:56)
[2023-01-05] MEDS: SACUBITRIL/VALSARTAN 49 MG-51 MG TABLET PO SCH (09:56)
[2023-01-05] MEDS: ALLOPURINOL 100 MG TABLET (FP) PO SCH (09:56)
[2023-01-05] MEDS: DIGOXIN 0.125 MG TABLET PO SCH (09:58)
[2023-01-05] MEDS ORDERED: DIGOXIN 0.25 MG TABLET PO SCH (10:00)
[2023-01-05] MEDS: CEFTRIAXONE 1 GM in DEXTROSE 5%-WATER - 50 ML IVPB SCH (15:15)
[2023-01-05 16:22] VITALS: BMI 27.8
[2023-01-05] MEDS: TAMSULOSIN HCL 0.4 MG CAP PO SCH (21:18)
[2023-01-06 08:45] LABS: BASO % 0.9 % (0-2.0); EOS % 3.4 % (0-4.5); HEMATOCRIT 31.3 % (35.4-49); LYMPH % 13.4 % (8-40); MCH 23.8 pg (25.7-33.7); MCHC 31.9 g/dl (32.0-35.9); MEAN CELL VOLUME 74.5 fl (80-96); MEAN PLT VOLUME 7.8 fl (7.5-11.1); MONO % 9.9 % (3.8-10.2); NEUT % 72.4 % (42.8-82.8); PLATELET COUNT 231 10^3/uL (134-434); RDW 18.3 % (11.9-15.9); WHITE BLOOD COUNT 7.8 K/mm3 (4.0-10.0)
[2023-01-06] MEDS: DIGOXIN 0.125 MG TABLET PO SCH (09:57)
[2023-01-06] MEDS: ALLOPURINOL 100 MG TABLET (FP) PO SCH (09:58)
[2023-01-06] MEDS: FUROSEMIDE 40 MG TABLET (FP) PO SCH (09:58)
[2023-01-06] MEDS: CEFTRIAXONE 1 GM in DEXTROSE 5%-WATER - 50 ML IVPB SCH (09:58)
[2023-01-06] MEDS: RIVAROXABAN 15 MG TABLET PO SCH (09:58)
[2023-01-06] MEDS ORDERED: metoPROLOL SUCCINATE 25 MG TAB.SR.24H (FP) PO SCH (10:45)
[2023-01-06 10:53] LABS: BILIRUBIN,TOTAL 1.1 mg/dL (0.2-1); BLOOD UREA NITROGEN 17.2 mg/dL (7-18); CALCIUM 8.2 mg/dL (8.5-10.1); CREATININE 1.1 mg/dL (0.55-1.3); POTASSIUM 3.5 mmol/L (3.5-5.1); TOT PROT 6.6 g/dl (6.4-8.2)
[2023-01-06] MEDS: SACUBITRIL/VALSARTAN 49 MG-51 MG TABLET PO SCH (11:50)
[2023-01-06] MEDS: TAMSULOSIN HCL 0.4 MG CAP PO SCH (21:05)
[2023-01-07 00:39] VITALS: RESP 20
[2023-01-07 08:19] LABS: POTASSIUM 3.6 mmol/L (3.5-5.1)
[2023-01-07 08:25] LABS: BLOOD UREA NITROGEN 17.1 mg/dL (7-18)
[2023-01-07 08:28] LABS: CREATININE 1.1 mg/dL (0.55-1.3)
[2023-01-07] MEDS: DIGOXIN 0.125 MG TABLET PO SCH (10:26)
[2023-01-07] MEDS: ALLOPURINOL 100 MG TABLET (FP) PO SCH (10:26)
[2023-01-07] MEDS: RIVAROXABAN 15 MG TABLET PO SCH (10:26)
[2023-01-07] MEDS: CEFTRIAXONE 1 GM in DEXTROSE 5%-WATER - 50 ML IVPB SCH (10:26)
[2023-01-07] MEDS: FUROSEMIDE 40 MG TABLET (FP) PO SCH (10:26)
[2023-01-07] MEDS: SACUBITRIL/VALSARTAN 49 MG-51 MG TABLET PO SCH (10:26)
[2023-01-07 14:07] VITALS: BP 131/69; PULSE 79; TEMP 97.9
== END 2023-01-07 17:49 | disposition home or self-care (01) | DRG 312 ==
LOC: FER 17:10 → UNDOADMOB 19:54 → FM/S 19:54 → J4W 01-05 23:50 → FM/S 01-06 00:10 → OBSVTOIN 01-07 09:59
PROVIDERS: ADMIT Internal Medicine; ATTEND Internal Medicine
DX: R55 Syncope and collapse (principal); N39.0 Urinary tract infection, site not specified; I13.0 Hypertensive heart and chronic kidney disease with heart failure and stage 1 through stage 4 chronic kidney disease, or unspecified chronic kidney disease; I50.22 Chronic systolic (congestive) heart failure; I24.8 Other forms of acute ischemic heart disease; I48.20 Chronic atrial fibrillation, unspecified; N17.9 Acute kidney failure, unspecified; E78.5 Hyperlipidemia, unspecified; I25.10 Atherosclerotic heart disease of native coronary artery without angina pectoris; K21.9 Gastro-esophageal reflux disease without esophagitis; K44.9 Diaphragmatic hernia without obstruction or gangrene; N40.0 Benign prostatic hyperplasia without lower urinary tract symptoms; F03.90 Unspecified dementia, unspecified severity, without behavioral disturbance, psychotic disturbance, mood disturbance, and anxiety; K57.90 Diverticulosis of intestine, part unspecified, without perforation or abscess without bleeding; N18.9 Chronic kidney disease, unspecified; M10.9 Gout, unspecified; E11.22 Type 2 diabetes mellitus with diabetic chronic kidney disease; R80.9 Proteinuria, unspecified; W18.30XA Fall on same level, unspecified, initial encounter; Y93.9 Activity, unspecified; Y92.480 Sidewalk as the place of occurrence of the external cause
CPT/HCPCS: 36415; 71045-TC-FY; 80048; 80053; 80162; 81003; 81015; 82962; 83735; 84100; 84484; 85025; 85027; 85610; 85730; 87077; 87086; 93005; 93306-TC; 97116-GP; 97161-GP; 99285-25; G0378

== ENCOUNTER 2023-01-07 18:19 | Emergency (ER) | payer OTHER, BC ==
[2023-01-07 19:25] VITALS: BMI 26.5
[2023-01-07] MEDS ORDERED: morphine CARPU-JECT 2 MG/1 ML DISP.SYRIN IM ONE (23:09)
[2023-01-07] MEDS ORDERED: morphine SULFATE 4 MG/ML VIAL ONE (23:22)
[2023-01-08 02:59] VITALS: BP 149/79; PULSE 91; RESP 18; TEMP 98
== END 2023-01-08 06:13 | disposition home or self-care (01) ==
LOC: FER 18:19
PROC: 3E023GC Introduction of Other Therapeutic Substance into Muscle, Percutaneous Approach (ICD-10-PCS; principal; 2023-01-07)
DX: S62.101A Fracture of unspecified carpal bone, right wrist, initial encounter for closed fracture (principal); M25.511 Pain in right shoulder; M25.531 Pain in right wrist; M25.521 Pain in right elbow; M79.644 Pain in right finger(s); W18.30XA Fall on same level, unspecified, initial encounter; Y93.01 Activity, walking, marching and hiking
CPT/HCPCS: 70450-TC; 71045-TC-FY; 72125-TC; 72170-TC-FY; 73030-TC-RT-FY; 73060-TC-RT-FY; 73070-TC-RT-FY; 73110-TC-RT-FY; 73130-TC-RT-FY; 99284-25